=== PATIENT | female | born 1980 | race Caucasian/White ===

== ENCOUNTER 2020-10-03 17:11 | Inpatient (IN) | payer OTHER ==
[~2020-10-03] VITALS: Ht 167.6 cm; Wt 74.1 kg
[~2020-10-03 17:11] MED LIST: Pentoxifylline400 MG PO
[2020-10-03 18:01] LABS: Hematocrit 24.6 % (33.0-51.0); Hemoglobin 8.4 g/dL (11.5-16.0); Mean Corpuscular HGB 32.8 pg (26.0-34.0); Mean Corpuscular HGB Conc 34.1 g/dL (31.5-36.5); Mean Corpuscular Volume 96 fL (80-100); Mean Platelet Volume 9.4 fL (9.1-12.4); Platelet Count 270 K/mm3 (150-400); RDW Coefficient Variation 20.9 % (11.7-14.2); RDW Standard Deviation 69.8 fL (35.1-46.3); Red Blood Cell Count 2.56 M/mm3 (3.80-5.20); White Blood Cell Count 48.23 K/mm3 (4.00-11.30)
[2020-10-03 18:11] LABS: BASOPHILS ABSOLUTE MAN 0.48 K/mm3 (0.00-0.23); BASOPHILS PERCENT MAN 1 % (0-2); EOSINOPHILS ABSOLUTE MAN 3.37 K/mm3 (0.00-0.68); EOSINOPHILS PERCENT MAN 7 % (0-6); LYMPHOCYTES ABSOLUTE MAN 8.19 K/mm3 (0.84-5.20); LYMPHOCYTES PERCENT MAN 17 % (21-46); MONOCYTES ABSOLUTE MAN 2.89 K/mm3 (0.16-1.47); MONOCYTES PERCENT MAN 6 % (4-13); NEUTROPHILS ABSOLUTE MAN 33.27 K/mm3 (1.96-9.15); SEG NEUTROPHILS PERCENT MAN 69 % (41-73); TOTAL CELLS COUNTED 100
[2020-10-03] MEDS ORDERED: SPIRONOLACTONE25 MG PO (19:29)
[2020-10-03] MEDS ORDERED: PANTOPRAZOLE SO40 M2 PO (19:29)
[2020-10-03] MEDS ORDERED: CONSTULOSE10 GM/155 PO (19:30)
[2020-10-03] MEDS ORDERED: FERROUS GLUCON324 M3 PO (19:30)
[2020-10-03 21:40] LABS: Percent Saturation 93.8 % (15.0-50.0)
--- NOTE | 2020-10-03 22:02 | NUR ---
ASSUMPTION OF CARE RECEIVED REPORT FROM CELIO RICHARD AT 2100. PATIENT ARRIVED TO UNIT AT 2109 VIA GURNEY. TRANSFERRED SELF TO BED INDEPENDENTLY. A/O, JAUNDICE, STATED TENDERNESS TO ABDOMEN, SEVERE DISTENTION NOTED DUE TO ASCITES. PROTONIX DRIP AND LR INIATED CHARTED. VITALS STABLE, ON RA. ORIENTED PATIENT TO CALL SYSTEM AND FALL RISK. EDUCATED PATIENT ON PLAN FOR PARACENTESIS AND GI PHYSICIAN TO SEE IN THE MORNING. ALSO EXPLAINED WHEN HER NEXT BLOOD DRAW WILL BE. PATIENT VERBALIZED UNDERSTANDING. WILL REVIEW ORDERS AND TREAT PRESCRIBED.
--- NOTE | 2020-10-03 23:49 | NUR ---
REASSESSMENT DR. TENA TO BEDSIDE, REVIEWED PLANS WITH PATIENT. PATIENT AGREED TO PARACENTESIS TOMORROW AND DR. TENA WILL FOLLOW UP WITH A SCOPE THE DAY AFTER UNLESS THERE ARE ACUTE CHANGES. REVIEWED PATIENT'S BLOOD PRESSURES WITH DR. TENA WHO BELIEVES SHE IS AT HER BASELINE. NO ACUTE CHANGES TO ASSESSMENT, IV FLUIDS OF LR AT 100ML/HR AND PROTONIX AT 10ML/HR INFUSING. PATIENT DENIES DISCOMFORTS. APPROVED TO HAVE CLEAR LIQUIDS, ICE WATER PROVIDED.
[2020-10-04 00:27] LABS: Hematocrit 23.8 % (33.0-51.0)
[2020-10-04 00:39] LABS: Magnesium, Blood 2.4 mg/dL (1.6-2.4); Potassium, Blood 3.4 mmol/L (3.5-5.5)
--- NOTE | 2020-10-04 01:57 | NUR ---
TRANSFER PATIENT WAS MOVED FROM ROOM ICU5 TO ICU1 VIA BED AND 2RN ASSIST. PATIENT TOLERATED WELL WITH NO DIFFICULTIES DURING TRANSFER. POTASSIUM BEGAN TO REPLACE MOST RECENT RESULT.
--- NOTE | 2020-10-04 04:15 | NUR ---
REASSESSMENT NO ACUTE CHANGES FROM PREVIOUS ASSESSMENT. PATIENT IN BED WITH EYES CLOSED, NO S/S OF DISTRESS. VITALS STABLE. POTASSIUM CONTINUES TO INFUSE, PROTONIX DRIP AT 10ML/HR. CALL LIGHT IN REACH.
[2020-10-04 05:18] LABS: BASOPHILS ABSOLUTE AUTO 0.19 K/mm3 (0.00-0.23); BASOPHILS PERCENT AUTO 0 % (0-2); EOSINOPHILS ABSOLUTE AUTO 0.65 K/mm3 (0.00-0.68); EOSINOPHILS PERCENT AUTO 1 % (0-6); Hematocrit 21.7 % (33.0-51.0); Hemoglobin 7.6 g/dL (11.5-16.0); IMMATURE GRAN PERCENT AUTO 4 % (0-1); LYMPHOCYTES ABSOLUTE AUTO 3.27 K/mm3 (0.84-5.20); LYMPHOCYTES PERCENT AUTO 7 % (21-46); MONOCYTES PERCENT AUTO 5 % (4-13); Mean Corpuscular HGB 33.2 pg (26.0-34.0); Mean Corpuscular Volume 95 fL (80-100); Mean Platelet Volume 9.3 fL (9.1-12.4); NEUTROPHILS ABSOLUTE AUTO 38.52 K/mm3 (1.96-9.15); NEUTROPHILS PERCENT AUTO 82 % (41-73); Platelet Count 258 K/mm3 (150-400); RDW Coefficient Variation 21.7 % (11.7-14.2); RDW Standard Deviation 68.7 fL (35.1-46.3); Red Blood Cell Count 2.29 M/mm3 (3.80-5.20); White Blood Cell Count 46.73 K/mm3 (4.00-11.30)
[2020-10-04 05:30] LABS: International Normalized Ratio 1.69; Prothrombin Time Results 17.7 Sec (9.7-11.5)
[2020-10-04 05:36] LABS: Alanine Aminotransfer (ALT/SGP 22 U/L (12-78); Albumin, Blood 2.1 g/dL (3.4-5.0); Albumin/Globulin Ratio 0.8 (0.8-1.8); Alk Phos 154 U/L (50-136); Anion Gap 5 mmol/L (6-16); Aspartate Aminotrans (AST/SGOT 111 U/L (12-37); Bilirubin, Total 10.1 mg/dL (0.1-1.0); Blood Urea Nitrogen 7 mg/dL (8-24); Bun/Creatinine Ratio 12.1 (12.0-20.0); CO2, Blood 24 mmol/L (21-32); Calcium, Blood 8.1 mg/dL (8.5-10.1); Chloride, Blood 106 mmol/L (98-108); Creatinine, Blood 0.58 mg/dL (0.40-1.00); Globulin, Blood 2.7 g/dL (2.2-4.0); Glomerular Filtration Rate >60 (60-); Glucose, Blood 98 mg/dL (70-99); Lactate Dehydrogenase (Ld),Bld 147 U/L (100-240); Sodium, Blood 135 mmol/L (136-145); Total Protein, Blood 4.8 g/dL (6.4-8.2)
--- NOTE | 2020-10-04 05:58 | NUR ---
SHIFT SUMMARY AFTER PATIENT WAS ADMITTED, DR. TENA ROUNDED PREVIOUSLY CHARTED AND DISCUSSED PATIENT'S PLAN FOR THE NEXT 1-2 DAYS. PATIENT IS IN AGREEANCE WITH PLAN. PATIENT REMAINED ON RA WITH STABLE VITALS. STEADY GAIT TO TOILET TWICE HAVING RED, LIQUID STOOLS. POTASSIUM FINISHING LAST DOSE. PROTONIX DRIP CONTINUES TO INFUSE. PATIENT AWAITING PARACENTESIS TODAY. WILL CONTINUE TO MONITOR AND REPORT TO ONCOMING RN.
--- NOTE | 2020-10-04 07:19 | NUR ---
ASSUMED CARE: PT RESTING IN BED, AWAKE, TALKING TO STAFF. LOW BPS NOTED, NIGHT RN STATES THIS HAS BEEN TREND. AWAITING PARACENTESIS. ABDOMINAL DISTENSION AND JAUNDICE NOTED. SINUS TACH IN LOW 100S ON TELE. NO ACUTE NEEDS OR CONCERNS AT THIS TIME.
[2020-10-04 10:32] LABS: Automated BF WBC Count 0.061 K/mm3 (0-999); Body Fluid WBC Count 61 /mm3 (0-999)
--- NOTE | 2020-10-04 10:33 | NUR ---
PARACENTESIS ULTRASOUND AND PA AT BEDSIDE TO PERFORM PARACENTESIS. 2.8 LITERS PULLED OFF AND REPORTED TO DR. TENA BY PRIMARY RN.
--- NOTE | 2020-10-04 10:37 | NUR ---
ULTRASOUND GUIDED PARACENTESIS DONE AT BEDSIDE WITH 2.8L REMOVED. PHARMACY STATES ALBUMIN IS USUALLY NOT GIVEN UNLESS MORE THAN 4L REMOVED. CALL TO DR TENA WHO STATES TO HOLD ALBUMIN AT THIS TIME. DR ASKED PT IF SHE WAS OK WITH EGD TODAY AND COLONOSCOPY TOMORROW. PT WAS AGREEABLE TO THIS PLAN. PT AWARE THAT SHE IS ONLY TO DRINK WATER UNTIL NOON THEN NPO FOR PROCEDURE.
[2020-10-04 10:49] LABS: Albumin, Body Fluid 0.4 g/dL
[2020-10-04 11:08] LABS: RBC Count, Body Fluid 73 /mm3 (0-0)
[2020-10-04 11:31] LABS: Color, Body Fluid L Yellow (None-Yellow); Total Cell Count, Body Fluid 100
[2020-10-04 11:32] LABS: Appearance, Body Fluid Clear (Clear)
[2020-10-04 12:12] LABS: Hematocrit 22.8 % (33.0-51.0); Hemoglobin 7.7 g/dL (11.5-16.0)
--- NOTE | 2020-10-04 14:50 | NUR ---
PROCEDURE DONE IN ICU. History, Chart, Medications and Allergies reviewed before start of procedure.Patient confirms NPO status and agrees with scheduled surgery. Lungs clear T/O to Auscultation.
--- NOTE | 2020-10-04 14:57 | NUR ---
10/04/20 1457 Parisa Palmer History, Chart, Medications and Allergies reviewed before start of procedure.Patient confirms NPO status and agrees with scheduled surgery.3-LEAD EKG REVIEWED WITH PHYSICIAN PRIOR TO START OF PROCEDURE.MONITOR INTACT WITH CONTINUOUS PULSE OXIMETRY AND INTERMITTENT BP.O2 VIA N/C INTACT THROUGHOUT SEDATION/PROCEDURE. See Anesthesia record
--- NOTE | 2020-10-04 15:43 | NUR ---
PROCEDURE UPPER SCOPE COMPLETED BY DR. TENA. DR. TENA GAVE INSTRUCTIONS TO RESTART CLEAR LIQUIDS UNTIL 0100 IN PREP FOR POSSIBLE POCEDURE TOMORROW.
--- NOTE | 2020-10-04 17:35 | NUR ---
SHIFT SUMMARY PATIENT A/OX4 WITH STABLE VITAL SIGNS THROUGH SHIFT. JAUNDICED. PARACENTESIS PULLED 2.8 LITERS OFF ABDOMEN TODAY. ABDOMEN CONTINUES TO BE DISTENDED AND TENDER. CONTINUOUS PROTONIX GTT IN PLACE. PATIENT HAS HAD MULTIPLE LIQUID RED BOWEL MOVEMENTS WITH LITTLE IMPROVEMENT IN COLOR OR CONSISTENCY. DR. TENA COMPLETED UPPER ENDOSCOPY AT THE BEDSIDE TODAY, PICTURES IN THE CHART. COLONOSCOPY TO BE PERFORMED TOMORROW BY DR. TENA. PATIENT IS AWARE AND INFORMED OF THE PREP AND PROCEDURE THAT WILL TAKE PLACE.
--- NOTE | 2020-10-04 19:30 | NUR ---
ASSESSMENT/ASSUMED CARE PT SITTING UP IN BED WATCING TV. STATES,"A LITTLE CRAMPING AND BLOATING TO ABD MAYBE 3/10 ON PAIN. I'M DOING OKAY". PT MOVING AND TURNING SELF IN BED. UP TO BATHROOM AD LORNA. LUNGS CLEAR ON ROOMAIR. RESP EVEN AND NONLABORED. HEART RATE TACHY. BP STABLE. NO EDEMA. SKIN JAUNDICE, WARM AND DRY. ABD DISTENDED, TENDER TO PALPATION. DENIES N/V. IV LEFT AC WITH BANANA BAG INFUSING AT 200 ML/HR AND IV TO RIGHT FOREARM WITH PROTONIX AT 10 ML/HR. BANDAID TO RIGHT LOWER QUAD ABD CD&I. TALKED WITH PT ABOUT HAVING HER REST TONIGHT AND START BOWEL PREP IN AM AT 0600. PT EXPRESSED UNDER STANDING. PT ON CLEAR LIQUIDS UNTIL 0100 THAN NPO.
[2020-10-04 22:32] LABS: Glucose, Body Fluid 116 mg/dL; Lactate Dehydrogenase, Body Fl 32 U/L; Protein, Body Fluid 0.8 g/dL
[2020-10-05 03:39] LABS: Hematocrit 20.2 % (33.0-51.0); Hemoglobin 6.8 g/dL (11.5-16.0); Mean Corpuscular HGB 33.2 pg (26.0-34.0); Mean Corpuscular HGB Conc 33.7 g/dL (31.5-36.5); Mean Corpuscular Volume 99 fL (80-100); Mean Platelet Volume 9.5 fL (9.1-12.4); Platelet Count 252 K/mm3 (150-400); RDW Coefficient Variation 22.1 % (11.7-14.2); RDW Standard Deviation 74.2 fL (35.1-46.3); Red Blood Cell Count 2.05 M/mm3 (3.80-5.20); White Blood Cell Count 48.56 K/mm3 (4.00-11.30)
[2020-10-05 05:26] LABS: Alanine Aminotransfer (ALT/SGP 22 U/L (12-78); Albumin/Globulin Ratio 0.7 (0.8-1.8); Alk Phos 147 U/L (50-136); Anion Gap 6 mmol/L (6-16); Aspartate Aminotrans (AST/SGOT 114 U/L (12-37); Bilirubin, Total 8.8 mg/dL (0.1-1.0); Blood Urea Nitrogen 5 mg/dL (8-24); Bun/Creatinine Ratio 8.6 (12.0-20.0); CO2, Blood 21 mmol/L (21-32); Calcium, Blood 7.9 mg/dL (8.5-10.1); Chloride, Blood 107 mmol/L (98-108); Creatinine, Blood 0.58 mg/dL (0.40-1.00); Globulin, Blood 2.7 g/dL (2.2-4.0); Glomerular Filtration Rate >60 (60-); Glucose, Blood 108 mg/dL (70-99); Magnesium, Blood 2.3 mg/dL (1.6-2.4); Potassium, Blood 3.8 mmol/L (3.5-5.5); Sodium, Blood 134 mmol/L (136-145); Total Protein, Blood 4.7 g/dL (6.4-8.2)
[2020-10-05 05:32] LABS: BAND PERCENT MAN 5 % (0-8); BASOPHILS PERCENT MAN 0 % (0-2); EOSINOPHILS ABSOLUTE MAN 0.48 K/mm3 (0.00-0.68); EOSINOPHILS PERCENT MAN 1 % (0-6); LYMPHOCYTES ABSOLUTE MAN 3.88 K/mm3 (0.84-5.20); LYMPHOCYTES PERCENT MAN 8 % (21-46); MONOCYTES PERCENT MAN 0 % (4-13); NEUTROPHILS ABSOLUTE MAN 44.18 K/mm3 (1.96-9.15); SEG NEUTROPHILS PERCENT MAN 86 % (41-73); TOTAL CELLS COUNTED 100
--- NOTE | 2020-10-05 05:47 | NUR ---
TRANSFUSION HGB 6.8, ONE UNIT PRBC STARTED. LR PLACED ON HOLD. PT SITTING UP IN BED WATCHING TV. VSS. BOWEL PREP STARTED.
--- NOTE | 2020-10-05 06:14 | NUR ---
SHIFT SUMMARY PT SITTING UP IN BED WATCHING TV AND WORKING ON [employer] ([employer]). TRANSFUSION OF PRBC INFUSING AT THIS TIME FOR HGB 6.8. PT TO HAVE COLONSCOPY THIS AFTERNOON. VSS. PT MOVING AND TURNING SELF IN BED. UP TO THE BATHROOM AD LORNA. REPORT TO ON COMING NURSE.
--- NOTE | 2020-10-05 07:15 | NUR ---
ASSUMPTION OF CARE ASSUMED CARE OF PT AT THIS TIME. PT IS LAYING IN BED, APPEARS COMFORTABLE. PT ON RA WITH BIOX 97%. MONITOR SHOWS SINUS TACH IN 100-110S. NOC RN REPORTS THIS HAS BEEN PERSISTENT THROUGH THE NIGHT. PT RECEIVING 1 UNIT PRBC. PT AMBULATES TO TOILET INDEPENDENTLY, PHILIP BLOOD PRESENT DURING BOWEL MOVEMENTS. PT CONTINUING TO DRINK [place]. SEE SHIFT ASSESSMENT.
[2020-10-05 10:05] LABS: Hematocrit 25.7 % (33.0-51.0); Hemoglobin 8.9 g/dL (11.5-16.0)
--- NOTE | 2020-10-05 16:23 | NUR ---
10/05/20 1623 Zachariah Ramos See Anesthesia record. History, Chart, Medications and Allergies reviewed before start of procedure. MONITOR INTACT WITH CONTINUOUS PULSE OXIMETRY AND INTERMITTENT BP.
--- NOTE | 2020-10-05 18:40 | NUR ---
SUMMARY Assumed care of pt at 1430 from Ketan RICHARD and Louise DANG. Pt A&O x 4. Answers questions. Follows commands. Verbalizes needs. Pleasant and cooperative with care. Pt on room air. BP low-normal. SR per monitor. Pt independent in room to use toilet. BMs clear. Medical, no tele ordered, after colonoscopy per Dr Lord. Discussed leukocytosis. Provider added zosyn and stopped ceftriaxone. Stated pt may eat. Ordered for protonix drip to be discontinued. Bed in lowest position. Call light in reach. Pt denies need at this time.
--- NOTE | 2020-10-05 19:36 | NUR ---
TRANSFER NOTE HANDOFF REPORT RECEIVED FROM ICU NURSE SARA. PT TRANSFERED TO FLOOR VIA WHEELCHAIR. LR NFUSING ORDERED. IV ANTIBIOTICS INFUSING. PT ORIENTED TO UNIT. CALL BUTTON WITHIN REACH. PERSONAL POSSESSIONS WITH PT
--- NOTE | 2020-10-06 04:36 | NUR ---
SHIFT SUMMARY ADMITTED FOR GI BLEED. FULL CODE. PT HAS HAD AN UPPER AND LOWER ENDOSCOPY. PT HAS CIRRHOSIS AND STABLE ESOPHAGEAL VARICES. RE: ASCITES - SHE HAD A PARACENTESIS AT [facility] WHERE [address] TENA IS CONSULT. PT IS JAUNDICED. WBC COUNT WAS ELEVATED @ 48.6, AWAITING MORNING LABS. LR INFUSING @ 100 ML/HR. IV ANTIBIOTICS ARE SCHEDULED. 1 UNIT OF PRBC GIVEN ON PREVIOUS SHIFT. NO REPORTS OF MELENA THIS SHIFT
[2020-10-06 05:16] LABS: Hematocrit 21.7 % (33.0-51.0); Hemoglobin 7.4 g/dL (11.5-16.0); Mean Corpuscular HGB 32.5 pg (26.0-34.0); Mean Corpuscular HGB Conc 34.1 g/dL (31.5-36.5); Mean Corpuscular Volume 95 fL (80-100); Mean Platelet Volume 9.6 fL (9.1-12.4); NRBC ABSOLUTE 0.02 K/mm3 (0.00-0.02); Platelet Count 248 K/mm3 (150-400); RDW Coefficient Variation 22.5 % (11.7-14.2); RDW Standard Deviation 72.2 fL (35.1-46.3); Red Blood Cell Count 2.28 M/mm3 (3.80-5.20); White Blood Cell Count 46.13 K/mm3 (4.00-11.30)
[2020-10-06 05:30] LABS: International Normalized Ratio 1.68; Prothrombin Time Results 17.6 Sec (9.7-11.5)
[2020-10-06 05:44] LABS: Alanine Aminotransfer (ALT/SGP 24 U/L (12-78); Albumin, Blood 1.7 g/dL (3.4-5.0); Albumin/Globulin Ratio 0.7 (0.8-1.8); Alk Phos 143 U/L (50-136); Anion Gap 8 mmol/L (6-16); Aspartate Aminotrans (AST/SGOT 127 U/L (12-37); Bilirubin, Total 9.1 mg/dL (0.1-1.0); Blood Urea Nitrogen 5 mg/dL (8-24); CO2, Blood 21 mmol/L (21-32); Calcium, Blood 7.4 mg/dL (8.5-10.1); Chloride, Blood 102 mmol/L (98-108); Creatinine, Blood 0.83 mg/dL (0.40-1.00); Globulin, Blood 2.6 g/dL (2.2-4.0); Glomerular Filtration Rate >60 (60-); Glucose, Blood 108 mg/dL (70-99); Magnesium, Blood 2.4 mg/dL (1.6-2.4); Phosphorus, Blood 2.9 mg/dL (2.5-4.9); Potassium, Blood 3.5 mmol/L (3.5-5.5); Sodium, Blood 131 mmol/L (136-145); Total Protein, Blood 4.3 g/dL (6.4-8.2)
[2020-10-06 05:55] LABS: BAND PERCENT MAN 8 % (0-8); BASOPHILS PERCENT MAN 0 % (0-2); EOSINOPHILS ABSOLUTE MAN 0.46 K/mm3 (0.00-0.68); EOSINOPHILS PERCENT MAN 1 % (0-6); LYMPHOCYTES ABSOLUTE MAN 1.38 K/mm3 (0.84-5.20); LYMPHOCYTES PERCENT MAN 3 % (21-46); METAMYELOCYTE ABSOLUTE MAN 0.46 K/mm3 (0.00-0.00); METAMYELOCYTE PERCENT MAN 1 % (0-0); MONOCYTES ABSOLUTE MAN 2.76 K/mm3 (0.16-1.47); MONOCYTES PERCENT MAN 6 % (4-13); MYELOCYTE ABSOLUTE MAN 0.92 K/mm3 (0.00-0.00); MYELOCYTE PERCENT MAN 2 % (0-0); NEUTROPHILS ABSOLUTE MAN 40.13 K/mm3 (1.96-9.15); SEG NEUTROPHILS PERCENT MAN 79 % (41-73); TOTAL CELLS COUNTED 100
[2020-10-06 11:12] LABS: Hematocrit 20.3 % (33.0-51.0); Hemoglobin 6.9 g/dL (11.5-16.0)
[2020-10-06 18:52] LABS: Hematocrit 22.4 % (33.0-51.0); Hemoglobin 7.9 g/dL (11.5-16.0)
--- NOTE | 2020-10-06 19:40 | NUR ---
SHIFT SUMMARY: PT A&O; CALM AND COOPERATIVE WITH CARE. PHILIP BLEEDING PER RECTUM CONTINUING; GI (DR TENA) FOLLOWING; 1U PRBCS INFUSED THIS SHIFT. NO C/O PAIN THIS SHIFT; MEDICATED FOR NAUSEA PER EMAR. CIRRHOSIS c ASCITES; ABD DISTENDED. IV ABX, LR, & BANANA BAG CONTINUING. REPORT GIVEN TO ONCOMING RN.
--- NOTE | 2020-10-06 22:46 | NUR ---
PT GAVE THIS STUDENT PERMISSION TO PROVIDE CARE ON 10/06/20.
[2020-10-07 03:13] LABS: Hematocrit 18.2 % (33.0-51.0); Hemoglobin 6.3 g/dL (11.5-16.0); Mean Corpuscular HGB 32.6 pg (26.0-34.0); Mean Corpuscular HGB Conc 34.6 g/dL (31.5-36.5); Mean Corpuscular Volume 94 fL (80-100); Mean Platelet Volume 9.5 fL (9.1-12.4); Platelet Count 229 K/mm3 (150-400); RDW Coefficient Variation 21.9 % (11.7-14.2); RDW Standard Deviation 65.7 fL (35.1-46.3); Red Blood Cell Count 1.93 M/mm3 (3.80-5.20)
[2020-10-07 03:30] LABS: Alanine Aminotransfer (ALT/SGP 24 U/L (12-78); Albumin, Blood 1.5 g/dL (3.4-5.0); Albumin/Globulin Ratio 0.7 (0.8-1.8); Alk Phos 130 U/L (50-136); Anion Gap 9 mmol/L (6-16); Aspartate Aminotrans (AST/SGOT 117 U/L (12-37); Bilirubin, Total 10.3 mg/dL (0.1-1.0); Blood Urea Nitrogen 6 mg/dL (8-24); Bun/Creatinine Ratio 6.2 (12.0-20.0); CO2, Blood 21 mmol/L (21-32); Calcium, Blood 7.3 mg/dL (8.5-10.1); Chloride, Blood 102 mmol/L (98-108); Creatinine, Blood 0.96 mg/dL (0.40-1.00); Globulin, Blood 2.3 g/dL (2.2-4.0); Glomerular Filtration Rate >60 (60-); Glucose, Blood 123 mg/dL (70-99); Potassium, Blood 3.5 mmol/L (3.5-5.5); Sodium, Blood 132 mmol/L (136-145); Total Protein, Blood 3.8 g/dL (6.4-8.2)
[2020-10-07 03:33] LABS: BAND PERCENT MAN 5 % (0-8); BASOPHILS ABSOLUTE MAN 0.56 K/mm3 (0.00-0.23); BASOPHILS PERCENT MAN 1 % (0-2); EOSINOPHILS ABSOLUTE MAN 0.56 K/mm3 (0.00-0.68); EOSINOPHILS PERCENT MAN 1 % (0-6); LYMPHOCYTES ABSOLUTE MAN 2.25 K/mm3 (0.84-5.20); LYMPHOCYTES PERCENT MAN 4 % (21-46); METAMYELOCYTE ABSOLUTE MAN 0.56 K/mm3 (0.00-0.00); METAMYELOCYTE PERCENT MAN 1 % (0-0); MONOCYTES ABSOLUTE MAN 0.56 K/mm3 (0.16-1.47); MONOCYTES PERCENT MAN 1 % (4-13); MYELOCYTE ABSOLUTE MAN 0.56 K/mm3 (0.00-0.00); MYELOCYTE PERCENT MAN 1 % (0-0); NEUTROPHILS ABSOLUTE MAN 51.23 K/mm3 (1.96-9.15); SEG NEUTROPHILS PERCENT MAN 86 % (41-73); TOTAL CELLS COUNTED 100
--- NOTE | 2020-10-07 05:23 | NUR ---
SHIFT SUMMARY PT EXPERIENCED ACUTE CHANGES THIS SHIFT. PHILIP BLEEDING PER RECTUM CONITNUING. PT REPORTED SOB, SPOTS IN VISION, & LIGHTHEADEDNESS. PT EXPERIENCED HYPOTENSION; D/T LOW HGB PT RECEIVED 1UNIT OF PRBC. MEDICATED FOR NAUSEA/EMESID X1 & PAIN X1 PER JUL. PT DID NOT REST COMFPRTABLY T/O THE NIGHT. CALL LIGHT WITHIN REACH & BED IN LOWEST POSITION. WILL CONTINUE TO MONITOR UNTIL DAY RN ASSUMES CARE.
[2020-10-07 08:17] LABS: Hematocrit 23.1 % (33.0-51.0)
[2020-10-07 11:02] LABS: Hematocrit 21.5 % (33.0-51.0); Hemoglobin 7.4 g/dL (11.5-16.0)
--- NOTE | 2020-10-07 11:12 | NUR ---
PRBC INFUSION STARTED @1103 LLL DIMINISHED
[2020-10-07 13:39] LABS: C DIFFICILE DNA NEGATIVE (Negative)
[2020-10-07 14:36] LABS: Hematocrit 24.2 % (33.0-51.0); Hemoglobin 8.5 g/dL (11.5-16.0)
[2020-10-07 17:35] LABS: Campylobacter Sp Not Detected (NOT DETECT); Enteroaggregative E. coli-EAEC Not Detected (NOT DETECT); Enteropathogenic E. coli-EPEC Not Detected (NOT DETECT); Enterotoxigenic E. coli-ETEC Not Detected (NOT DETECT); Plesiomonas Shigelloides Not Detected (NOT DETECT); Salmonella Sp Not Detected (NOT DETECT); Shiga Toxin-prod E. coli-STEC Not Detected (NOT DETECT); Vibrio Cholerae Not Detected (NOT DETECT); Vibrio Sp Not Detected (NOT DETECT); Yersinia Enterocolitica Not Detected (NOT DETECT)
[2020-10-07 17:36] LABS: Adenovirus F 40/41 Not Detected (NOT DETECT); Astrovirus Not Detected (NOT DETECT); Cryptosporidium Not Detected (NOT DETECT); Cyclospora Cayetanensis Not Detected (NOT DETECT); E. Coli O157 Not Detected (NOT DETECT); Entamoeba Histolytica Not Detected (NOT DETECT); Giardia Lamblia Not Detected (NOT DETECT); Norovirus GI/GII Not Detected (NOT DETECT); Rotavirus A Not Detected (NOT DETECT); Sapovirus Not Detected (NOT DETECT); Shigella/Enteroin E. coli-EIEC Not Detected (NOT DETECT)
[2020-10-07 18:26] LABS: Hematocrit 22.2 % (33.0-51.0)
--- NOTE | 2020-10-07 18:41 | NUR ---
PATIENT ARRIVED TO UNIT FROM MEDICAL FLOOR, ABLE TO TRANSFER WITH SBA TO BED. ALERT AND ORIENTED, VSS. PATIENT DENIES CHEST PAIN/PRESSURE. CALL LIGHT WITHIN REACH, WCTM.
--- NOTE | 2020-10-07 19:06 | NUR ---
PT INFUSING 1 UNIT PRBC AT SOC. 1 MORE UNIT INFUSED. PT CONTINUED WITH PHILIP STOOL THOUGHOUT CARE. C-DIFF NEGATIVE. HEMATOLOGY CONSULT CALLED. PT CONTINUED WITH LOW BP 80S/40S. ABDOMEN DISTENDED.DR. DURAN NOTIFIED OF PT STATUS. ORDER RECIEVED TO TRANSFER PT TO HIGHER LEVEL OF CARE. REPORT CALLED TO PCU
[2020-10-07 19:49] LABS: Hematocrit 22.2 % (33.0-51.0); Hemoglobin 7.8 g/dL (11.5-16.0)
[2020-10-07 21:13] LABS: Hemoglobin 7.4 g/dL (11.5-16.0)
[2020-10-08 00:39] LABS: Hematocrit 20.2 % (33.0-51.0); Hemoglobin 7.3 g/dL (11.5-16.0)
[2020-10-08 04:05] LABS: Hematocrit 19.2 % (33.0-51.0); Hemoglobin 6.6 g/dL (11.5-16.0); Mean Corpuscular HGB 31.7 pg (26.0-34.0); Mean Corpuscular HGB Conc 34.4 g/dL (31.5-36.5); Mean Corpuscular Volume 92 fL (80-100); Mean Platelet Volume 9.6 fL (9.1-12.4); NRBC ABSOLUTE 0.02 K/mm3 (0.00-0.02); Platelet Count 238 K/mm3 (150-400); RDW Coefficient Variation 19.8 % (11.7-14.2); RDW Standard Deviation 53.4 fL (35.1-46.3); Red Blood Cell Count 2.08 M/mm3 (3.80-5.20)
[2020-10-08 04:19] LABS: White Blood Cell Count 55.26 K/mm3 (4.00-11.30)
--- NOTE | 2020-10-08 04:45 | NUR ---
SHIFT SUMMARY NO ACUTE CHANHGES THIS SHIFT. PT AXO. IN SR/ST. SBP RANGING FROM 70-105. FLUIDSINFUSING AT 100ML/HR CONTINUOUSLY. REMAINS ON RA WITH CLEAR LS. SEVERE DISTENSION TO AB REMAINS. PT STATES TIGHT FEELING TO ABD. HGB HAS SO FAR REMAINED >7. HAS HAD MULTIPLE PHILIP RED BM'S TOTALING UP TO AROUND 250-300MLS. OTHERWISE, PT HAS BEEN RESTING OFF AND ON IN ROOM. WCTM.
[2020-10-08 04:48] LABS: Albumin, Blood 1.5 g/dL (3.4-5.0); Albumin/Globulin Ratio 0.7 (0.8-1.8); Bilirubin, Total 11.6 mg/dL (0.1-1.0); Calcium, Blood 7.2 mg/dL (8.5-10.1); Creatinine, Blood 1.29 mg/dL (0.40-1.00); Globulin, Blood 2.2 g/dL (2.2-4.0); Magnesium, Blood 2.3 mg/dL (1.6-2.4); Potassium, Blood 3.5 mmol/L (3.5-5.5); Total Protein, Blood 3.7 g/dL (6.4-8.2)
[2020-10-08 05:38] LABS: BAND PERCENT MAN 8 % (0-8); BASOPHILS PERCENT MAN 0 % (0-2); EOSINOPHILS ABSOLUTE MAN 0.55 K/mm3 (0.00-0.68); EOSINOPHILS PERCENT MAN 1 % (0-6); LYMPHOCYTES ABSOLUTE MAN 5.52 K/mm3 (0.84-5.20); LYMPHOCYTES PERCENT MAN 10 % (21-46); METAMYELOCYTE ABSOLUTE MAN 0.55 K/mm3 (0.00-0.00); METAMYELOCYTE PERCENT MAN 1 % (0-0); MONOCYTES ABSOLUTE MAN 0.55 K/mm3 (0.16-1.47); MONOCYTES PERCENT MAN 1 % (4-13); NEUTROPHILS ABSOLUTE MAN 48.07 K/mm3 (1.96-9.15); SEG NEUTROPHILS PERCENT MAN 79 % (41-73); TOTAL CELLS COUNTED 100
--- NOTE | 2020-10-08 08:10 | NUR ---
INITIAL ASSESSMENT PATIENT ALERT AND ORIENTED X 4, AFEBRILE. PATIENT APPEARS ANXIOUS AT TIMES. PATIENT COMPLAINS OF 7/10 ABDOMINAL PAIN. PATIENT INDEPENDENT IN ROOM. PATIENT SATTING 90% AND GREATER ON RA. EXP WHEEZE NOTED IN L UPPER LUNG LOBE. PATIENT IN ST, HR AT 105. BP 82/44. PATIENT DENIES FEELING WEAK, DIZZY OR LIGHT HEADED WHEN SHE STANDS UP. ABDOMEN SEVERELY DISTENDED, FIRM, TENDER. HYPERACTIVE BS NOTED. PATIENT HAVING OUT PHILIP RED BLOOD. 150 MLS OUT THIS MORNING THUS FAR. WNL. SKIN JAUNDICED. NO OTHER SKIN PROBLEMS NOTED. 1 UNITS PRBCS INFUSING AT THIS TIME. BED LOW, CALL LIGHT IN REACH. WILL CONTINUE TO MONITOR PATIENT FREQUENTLY THROUGHOUT SHIFT.
--- NOTE | 2020-10-08 08:37 | NUR ---
DR. DURAN UPDATED ON PATIENT STATUS. INFORMED OF HYPOTENSION. INFORMED THAT H AND H 6.6 AND PATIENT CURRENTLY RECEIVING 1 UNITS OF PRBCS. INFORMED THAT PATIENT MENTIONED SHE WOULD LIKE PARACENTESIS BECAUSE OF ABDOMINAL COMFORT. PATIENT REPORTS ABDOMINAL PAIN 7/ 10 THIS AM. INFORMED THAT PATIENT HAS HAD ROUGHLY 150 MLS OF PHILIP RED BLOOD OUT THUS FAR THIS AM. DOCTOR STATED SHE WOULD PLACE ORDERS.
--- NOTE | 2020-10-08 10:17 | NUR ---
DR. DURAN INFORMED THAT PATIENT HAS RASH TO BLES. INFORMED THAT PATIENT ON ZOSYN AND HAS ALLERGY TO PENICILLINS. INFORMED THAT PATIENT REPORTED SHE HAD THE RASH BEFORE SHE WAS ADMITTED TO THE HOSPITAL. NO ORDER TO DC ZOSYN AT THIS TIME.
--- NOTE | 2020-10-08 11:51 | NUR ---
PATIENT AFEBRILE. PATIENT STATES PAIN IS MANAGEABLE AT THIS TIME. HR 99. BP 93/52. SANDOSTATIN STARTED AT 25 MLS/ HOUR. PG INSERTED BY CHARGE NURSE. DR. TENA IN ROOM TO SEE PATIENT.
[2020-10-08 12:46] LABS: Hematocrit 27.5 % (33.0-51.0); Hemoglobin 9.7 g/dL (11.5-16.0)
--- NOTE | 2020-10-08 15:27 | NUR ---
CALLED PHARMACY AND VERIFIED THAT OKAY TO RUN LR AND OCTREOTIDE INTO Y SITE TOGETHER.
--- NOTE | 2020-10-08 15:59 | NUR ---
PATIENT AFEBRILE. HR IN THE 90S. BP 99/57. NO OTHER ACUTE CHANGES TO NOTE ON AT THIS TIME. WILL CONTINUE TO MONITOR.
--- NOTE | 2020-10-08 18:11 | NUR ---
SHIFT SUMMARY PATIENT REMAINED ALERT AND ORIENTED X 4, AFEBRILE. PATIENT GIVEN PRN PAIN MEDICATION OT FOR COMPLAINT OF ABDOMINAL PAIN. PATIENT REMIANED INDEPENDENT IN ROOM. PATIENT REMAINED SATTING 90% AND GREATER ON RA. PATIENT SR TO ST, HR 90S TO LOW 100S. SBP 80S TO 90S. ABDOMEN REMAINED SEVERELY DISTENDED, FIRM, TENDER. POOR APPETITE. PATIENT HAD OUT 450 MLS OF BRIGHT RED, LIQUID STOOL. PATIENT HAD 3 UNMEASURED VOIDS THIS SHIFT. PATIENT REPORTED 2 OF THE VOIDS WERE SMALL AND 1 WAS A "GOOD SIZED VOID". RASH TO LEGS REMAINED UNCHANGED. PATIENT REMAINED ON ZOSYN. LR REMAINS AT 100 MLS/ HOUR. SANDOSTATIN STARTED THIS SHIFT AND REMAINS AT 25 MLS/ HOUR. PATIENT HAD 2 UNITS OF PRBCS THIS SHIFT. PATIENT STARTED ON ALBUMIN. MIDODRINE STARTED THIS SHIFT. PATIENT HAD US ABDOMEN AND NM GI BLOOD LOSS EXAM PERFORMED THIS SHIFT. NO ACTIVE BLEEDING NOTED ON RED TAG STUDY PER REPORT. NO COMPLAINTS OF PAIN OR DISCOMFORT AT THIS TIME. BED LOW, CALL LIGHT IN REACH. REPORT WILL BE GIVEN TO ONCOMING INVESTMENT PROFESSIONAL NURSE SHORTLY.
[2020-10-08 19:01] LABS: Hematocrit 23.4 % (33.0-51.0); Hemoglobin 8.2 g/dL (11.5-16.0)
--- NOTE | 2020-10-08 21:30 | NUR ---
PAIN; PATIENT REPORTS SHE WOULD LIKE PAIN MEDICATION FOR SIDES OF ABDOMEN. PATIENT EDUCATED ON BLOOD PRESSURE AND EFFECTS OF PAIN MEDICATION. MAT MAKER LORI IN UNIT AND DISCUSSED SITUATION; ORDERS FOR FENTANYL 25MCG Q2.
--- NOTE | 2020-10-08 22:44 | NUR ---
ASSUMED CARE OF PATIENT AT APPROXIMATELY 1900 FROM MARIA DEL ROSARIO Vo RN. PATIENT ALERT AND ORIENTED X4; WEAK; INDEPENDENT TO BEDSIDE COMMODE AND BACK TO BED. PATIENT REPORTS PAIN IN ABDOMEN FROM PRESSURE OF SWELLING IN ABDOMEN PUSHING UP INTO HER RIB CAGES AND SIDES OF ABDOMEN WHEN PUTTING PRESSURE ON IT; SEE PREVIOUS NOTE ABOUT PAIN. PATIENT DENIES NUMBNESS, TINGLING, DIZZINESS AND NAUSEA. PATIENT REPORTS POOR APPETITE BECAUASE SMALL AMOUNTS OF FOOD/DRINK FILL HER UP. LR INFUSING PER ORDER; OCTREOTIDE INFUSING PER ORDER. PG VERNA. SR ON TELE; OXYGEN SATURATION ABOVE 90% ON ROOM AIR. ONE BM THIS SHIFT; BRIGHT RED WITH SMALL FORMED; PATIENT REPORTS SMALLER AMOUNT BLOOD IN BM. SMALL AMOUNTS OF URINE.
[2020-10-09 00:50] LABS: Hematocrit 20.7 % (33.0-51.0); Hemoglobin 7.4 g/dL (11.5-16.0)
[2020-10-09 07:01] LABS: Hematocrit 21.6 % (33.0-51.0); Hemoglobin 7.7 g/dL (11.5-16.0)
--- NOTE | 2020-10-09 07:15 | NUR ---
PATIENT SLEPT ABOUT SEVEN HOURS LAST NIGHT. NO OTHER ACUTE CHANGES. HEMOGLOBIN ABOVE 7. BP IN 80-90'S. REPORT GIVEN TO TRICE Gamez
[2020-10-09 09:51] LABS: Performing Lab SYMBIODX; Test Name FLOW
--- NOTE | 2020-10-09 11:04 | NUR ---
PT ALERT AND ORIENTED X4. ON ROOM AIR AT THIS TIME. SATING MID 90'S THIS AM. DENIES SOB. TELE SHOWING SINUS HR 88. DENIES CHEST PAIN/PRESSURE. ABDOMEN DISTENTION, PT COMPLAINS OF PRESSURE. DENIES NEED FOR PAIN MEDICATION AT THIS TIME. SKIN AND SCLERA JAUNDICED. RIGHT UPPER ARM POWER GLIDE INFUSING LR AND OCTREOTIDE. LEFT AC SALINE LOCKED AND FLUSHING WELL. MINIMAL EDEMA TO UPPER THIGHS. DECREASED APPETITE. UP TO BSC. BLOODY STOOLS, PER PATIENT BLOOD IS DECREASING. WILL CONTINUE TO MONITOR. LUNGS SOUNDING CLEAR WITH DIMINISHED BASES. CALL LIGHT IN REACH. WILL CONTINUE TO MONITOR.
[2020-10-09 11:08] LABS: Bilirubin, Direct 9.1 mg/dL (0.0-0.3); Bilirubin, Indirect 2.9 mg/dL (0.1-0.7)
--- NOTE | 2020-10-09 16:03 | NUR ---
TWO BOWEL MOVEMENTS TODAY WITH BLOOD. PT STATES BLOOD IS ABOUT THE SAME IF NOT DECREASING FROM YESTERDAY. MEDIUM SIZED STOOLS WITH SOME LIQUID BRIGHT RED BLOOD.
[2020-10-09 16:23] LABS: Bun/Creatinine Ratio 6.9 (12.0-20.0); Calcium, Blood 7.8 mg/dL (8.5-10.1); Creatinine, Blood 1.45 mg/dL (0.40-1.00); Potassium, Blood 3.5 mmol/L (3.5-5.5)
--- NOTE | 2020-10-09 18:02 | NUR ---
SHIFT SUMMARY: PT REMAINS ALERT AND ORIENTED X4. NO ACUTE CHANGES. SEE PREVIOUS NOTES FOR UPDATES. PT COMPLAINS OF ABDOMINAL PAIN, DESCRIBING IT PRESSURE FROM HER ABDOMEN. MEDICATED PER EMAR. BLOOD PRESSURE REMAINED STABLE AND PT ABLE TO SIT UP IN BED AND EAT MEALS WITH PAIN DECREASING. OCTREOTIDE, FLUIDS AND ANTIBIOTICS INFUSING. WILL CONTINUE TO MONITOR AND REPORT OFF.
[2020-10-09 21:31] LABS: Hematocrit 20.9 % (33.0-51.0); Hemoglobin 7.1 g/dL (11.5-16.0)
[2020-10-10 04:20] LABS: Hematocrit 18.6 % (33.0-51.0); Hemoglobin 6.4 g/dL (11.5-16.0); Mean Corpuscular HGB 31.2 pg (26.0-34.0); Mean Corpuscular HGB Conc 34.4 g/dL (31.5-36.5); Mean Corpuscular Volume 91 fL (80-100); Mean Platelet Volume 8.8 fL (9.1-12.4); Platelet Count 171 K/mm3 (150-400); RDW Coefficient Variation 21.9 % (11.7-14.2); RDW Standard Deviation 57.5 fL (35.1-46.3); Red Blood Cell Count 2.05 M/mm3 (3.80-5.20); White Blood Cell Count 33.85 K/mm3 (4.00-11.30)
[2020-10-10 04:42] LABS: Albumin, Blood 2.5 g/dL (3.4-5.0); Albumin/Globulin Ratio 1.6 (0.8-1.8); Bilirubin, Total 10.3 mg/dL (0.1-1.0); Bun/Creatinine Ratio 6.7 (12.0-20.0); Calcium, Blood 7.7 mg/dL (8.5-10.1); Creatinine, Blood 1.34 mg/dL (0.40-1.00); Globulin, Blood 1.6 g/dL (2.2-4.0); Potassium, Blood 3.2 mmol/L (3.5-5.5); Total Protein, Blood 4.1 g/dL (6.4-8.2)
--- NOTE | 2020-10-10 05:54 | NUR ---
SHIFT SUMMARY PATIENT IS ALERT AND ORIENTED X4. REPOSITIONS SELF IN BED. SBA TO BEDSIDE COMMODE DUE TO LOW BP. 02 SATS >95% ON 2L VIA NC. MEDICATED FOR PAIN, SEE EMAR. PATIENTS EDEMA IN BLE INCREASING, BILATERAL SEQ. COMPRESSION DEVICES IN PLACE MOST THE NIGHT. PATIENT TEACHING ABOUT MOBILITY AND STAYING ACTIVE. CALLED HOSPITALIST FOR PATIENT Hgb 0F 6.4 AND POTASSIUM OF 3.2. 1 UNIT PRBCs TRANSFUSING NOW AND PO POTASSIUM GIVEN. VSS, NO ACUTE CHANGES. CALL LIGHT IN REACH.
--- NOTE | 2020-10-10 07:55 | NUR ---
BLOOD IN STOOL PT HAD 100 ML OF BRIGHT RED BLOOD IN STOOL. WILL INFORM PHYSICIAN.
--- NOTE | 2020-10-10 08:16 | NUR ---
UPDATE PT HAD 275 ML OF BLOOD IN STOOL. PHYSICIAN NOTIFIED BY PUBLIC ADMINISTRATION TEACHER.
--- NOTE | 2020-10-10 08:48 | NUR ---
UPDATE BY CRISTY BUCKLEY SN THS PATIET HAD ANOTHER BOWEL MOVEMENT OF 100 MLS OF BLOODY STOOL WITH COAGULATED BLOOD AT 0840 ON 10/10/20.
[2020-10-10 11:50] LABS: Hematocrit 22.3 % (33.0-51.0); Hemoglobin 7.7 g/dL (11.5-16.0)
--- NOTE | 2020-10-10 12:34 | NUR ---
UPDATE PT HAD PICC LINE PLACED PER ORDER FROM PHYSICIAN. PLACED BY HILARY HAMMONDS. PT TO NUCLEAR MED SCAN, ORDERED PER GI PHYSICIAN D/T PT'S INCREASE IN BLOODY STOOLS. WILL CONTINUE TO MONITOR.
--- NOTE | 2020-10-10 16:22 | NUR ---
PT TRANSFERED TO [facility] VIA GURNY FROM FLOOR. History, Chart, Medications and Allergies reviewed before start of procedure. Lungs clear T/O to Auscultation. Patient confirms NPO status and agrees with scheduled surgery.
--- NOTE | 2020-10-10 17:03 | NUR ---
10/10/20 1703 IDA FERRARI History, Chart, Medications and Allergies reviewed before start of procedure. 3-LEAD EKG REVIEWED WITH PHYSICIAN PRIOR TO START OF PROCEDURE. MONITOR INTACT WITH CONTINUOUS PULSE OXIMETRY AND INTERMITTENT BP. 3-LEAD EKG REVIEWED WITH PHYSICIAN PRIOR TO START OF PROCEDURE. NO SEDATION PER DR. TENA.
[2020-10-10 17:48] LABS: Hemoglobin 7.7 g/dL (11.5-16.0)
--- NOTE | 2020-10-10 18:37 | NUR ---
SHIFT SUMMARY PT ALERT AND ORIENTED X 4. HR STABLE, PT HAD RUN OF VTACH, SEE CHART. PHYSICIAN NOTIFIED, EKG ORDERED AND DONE,SEE PAPER CHART. PT REPORTS CHEST PAIN, UNABLE TO RATE OUT OF 10. LAB ORDERS INPUT, SEE EHR. RHYTHM NOW IN NORMAL SINUS RHYTHM. BP STABLE. OXYGEN SATURATION MAINTAINED ABOVE 92% ON 2 L OF OXYGEN VIA NC. PICC INSERTED PER PHYSICIAN ORDER. HGB STABLE, SEE CHART. PHYSICIAN NOTIFIED OF PT'S INCREASE IN BLEEDING FROM RECTUM. BROUGHT TO DAY SURGERY FOR PROCEDURE THIS AFTERNOON. VS STABLE WHEN ARRIVAL BACK TO UNIT. WILL CONTINUE TO MONITOR UNTIL REPORT GIVEN TO NIGHTSHIFT RN.
--- NOTE | 2020-10-10 19:45 | NUR ---
PT FALL PT FELL DURING SHIFT CHANGE AT 1930. PT WAS USING WALKER TO USE BED SIDE COMMODE. PT ASSESSED POST FALL WITH THIS RN AND HILARY MILLER. PT STATES SHE DID NOT HIT HER HEAD AND HIT KNEES ONLY. RANGE OF MOTION ASSESSED. NO WOUNDS VISIBLE. NO REDNESS. PT WAS IND IN ROOM AT BEGINNING OF SHIFT, PT ABLE TO AMBULATE ON OWN WITH WALKER AT END OF SHIFT. PT NOW HAS BED ALARM IN PLACE. PT EDUCATED ON FALL RISK AND REASON FOR FOR ASSISTANCE NEEDED WITH AMBULATION. PT ALERT AND ORIENTED X 4. FALL HUDDLE TO BE DONE WITH NUTRITION SERVICES ASSISTANTNICOLAS RICHARD.
--- NOTE | 2020-10-10 20:11 | NUR ---
FALL UPDATE RE-ASSESSED PT. PT REPORTS NO PAIN FROM FALL. RANGE OF MOTION INTACT. NO REDNESS OR BRUISING SEEN ON KNEES WHERE PT STATED THEY LANDED D/T FALL.
--- NOTE | 2020-10-10 20:25 | NUR ---
PHYSICIAN NOTIFIED PHYSICIAN NOTIFIED OF PT'S UNWITNESSED FALL. PHYSICIAN AWARE PT STATES SHE FELL AND HIT HER KNEES, REPORTS PAIN 0/10. NO REDNESS, TENDERNESS OR VISIBLE INJURY D/T FALL. NO ORDERS AT THIS TIME.
--- NOTE | 2020-10-11 06:46 | NUR ---
SHIFT SUMMARY PT A&O X 4; PLEASANT & COMPLIANT W/ CARE, BUT WITHDRAWN; VSS; DENIES CHEST PAIN; NSR NOTED ON TELE; NOTIFIED BY TELE OF SIGNIFICANT RUN OF VTACH @ 0430; PT AWOKE AND QUESTIONED, STATED SHE WAS ASSYMPTOMATIC; O2 SATS >93 ON 2L NC; PT DOES NOT USE O2 AT BASELINE; SLEPT A FEW HOURS IN BETWEEN INTERVENTIONS; APPEARS UNCOMFORTABLE AND WHEN QUESTIONED, PT STATES ABDOMEN "HURTS"; CALL LIGHT IN REACH; SANDOSTATIN GTT CONTINUES, LR GTT, ALBUMIN AND ABX THERAPY THIS SHIFT; BED IN LOWEST POSITION; WILL CONTINUE TO MONITOR CLOSELY UNTIL HAND OFF TO DAY SHIFT RN.
[2020-10-11 07:05] LABS: BASOPHILS ABSOLUTE AUTO 0.17 K/mm3 (0.00-0.23); BASOPHILS PERCENT AUTO 1 % (0-2); EOSINOPHILS ABSOLUTE AUTO 0.33 K/mm3 (0.00-0.68); EOSINOPHILS PERCENT AUTO 1 % (0-6); Hemoglobin 6.8 g/dL (11.5-16.0); IMMATURE GRAN PERCENT AUTO 2 % (0-1); LYMPHOCYTES ABSOLUTE AUTO 1.93 K/mm3 (0.84-5.20); LYMPHOCYTES PERCENT AUTO 6 % (21-46); MONOCYTES ABSOLUTE AUTO 1.75 K/mm3 (0.16-1.47); MONOCYTES PERCENT AUTO 5 % (4-13); Mean Corpuscular HGB 31.5 pg (26.0-34.0); Mean Corpuscular Volume 93 fL (80-100); Mean Platelet Volume 9.4 fL (9.1-12.4); NEUTROPHILS ABSOLUTE AUTO 29.56 K/mm3 (1.96-9.15); NEUTROPHILS PERCENT AUTO 86 % (41-73); Platelet Count 166 K/mm3 (150-400); RDW Coefficient Variation 21.2 % (11.7-14.2); RDW Standard Deviation 59.2 fL (35.1-46.3); Red Blood Cell Count 2.16 M/mm3 (3.80-5.20); White Blood Cell Count 34.24 K/mm3 (4.00-11.30)
[2020-10-11 07:11] LABS: Bun/Creatinine Ratio 7.3 (12.0-20.0); Calcium, Blood 7.6 mg/dL (8.5-10.1); Creatinine, Blood 1.24 mg/dL (0.40-1.00); Potassium, Blood 3.6 mmol/L (3.5-5.5)
[2020-10-11 17:35] LABS: Hemoglobin 7.8 g/dL (11.5-16.0)
--- NOTE | 2020-10-11 17:48 | NUR ---
SHIFT SUMMARY PT ALERT AND ORIENTED. PT ANXIOUS THROUGHOUT SHIFT AND NEW ORDERS FOR ATIVAN PO PROVIDED AND PT MEDICATED NEEDED. O2 SATS HAVE REMAINED ABOVE 90% ON 2L NC. THIS EVENING PT REPORTS FEELING LIKE SHE CAN'T CATCH HER BREATH. LS WHEEZES AND RR INCREASED. PT STATES SHE FEELS LIKE HER ABD IS CAUSING TOO MUCH PRESSURE SO SHE CAN'T BREATHE. DR. TENA NOTIFIED AND STATES HE WILL COME BY TO SEE PT. BP STABLE THIS SHIFT. HR REMAINS SINUS TACH. ABD FIRM AND DISTENDED. PT HAVING MULTIPLE BRIGHT RED BLOODY STOOL THAT IS LIQUID. PT STATES SHE IS PASSING MORE GAS TODAY THAN SHE HAS THE PREVIOUS COUPLE OF DAYS. PT COMPLAINS OF PAIN IN HER ABD AT TIMES THAT GOES DOWN INTO HER LEGS. PT MEDICATED NEEDED. PT RECEIVED 1 UNIT OF PRBC THIS SHIFT. LR INFUSING PER ORDERS. OCTREOTIDE INFUSING PER ORDERS. WILL CONTINUE TO MONITOR CLOSELY AND REPORT TO ONCOMING RN. CALL LIGHT IN REACH.
[2020-10-12 05:04] LABS: Hematocrit 19.8 % (33.0-51.0); Hemoglobin 6.9 g/dL (11.5-16.0); Mean Corpuscular HGB 31.2 pg (26.0-34.0); Mean Corpuscular HGB Conc 34.8 g/dL (31.5-36.5); Mean Corpuscular Volume 90 fL (80-100); Mean Platelet Volume 9.1 fL (9.1-12.4); Platelet Count 143 K/mm3 (150-400); RDW Standard Deviation 58.1 fL (35.1-46.3); Red Blood Cell Count 2.21 M/mm3 (3.80-5.20); White Blood Cell Count 37.22 K/mm3 (4.00-11.30)
[2020-10-12 05:21] LABS: International Normalized Ratio 2.33
[2020-10-12 05:26] LABS: Albumin, Blood 2.9 g/dL (3.4-5.0); Albumin/Globulin Ratio 1.8 (0.8-1.8); Bilirubin, Total 12.2 mg/dL (0.1-1.0); Bun/Creatinine Ratio 6.4 (12.0-20.0); Calcium, Blood 7.7 mg/dL (8.5-10.1); Creatinine, Blood 1.1 mg/dL (0.40-1.00); Globulin, Blood 1.6 g/dL (2.2-4.0); Magnesium, Blood 1.6 mg/dL (1.6-2.4); Potassium, Blood 3.3 mmol/L (3.5-5.5); Total Protein, Blood 4.5 g/dL (6.4-8.2)
--- NOTE | 2020-10-12 06:32 | NUR ---
SHIFT SUMMARY PT A&OX4. WITHDRAWN. SP02>90% ON 2L NC. PT C/O OF SOB. TELEMETRY READS SINUS TACH, HR 100'S. PT HAS 2+ EDEMA IN FEET, ELEVATED ON PILLOW. PT HAS SEVERE ABD DISTENTION, FIRM AND TENDER. PT UP TO BSC W/ 1 PERSON FULL ASSIST D/T WEAKNESS. PT EXCRETING BLOOD INTO BSC. PT APPEARS JAUNDICE. SANDOSTATIN, LR, ABX INFUSED PER EMAR. POWERGLIDE DRAWS. PT HGB LAB RESULTED 6.9 THIS AM. CALL PLACED TO MD ROY. MD ROY W/ ORDERS TO RECHECK HGB AT 10 AM. CALL LIGHT IN REACH. WILL GIVE REPORT TO ONCOMING NURSE.
--- NOTE | 2020-10-12 09:46 | NUR ---
C/O burning in epigastric area, after which she also vomited, clear red liquid, after drinking swartz ensure with breakfast and po medications. blood transfusion started after administration of phenergan. Pt thereafter had agitation and anxiety, which seemed to be related to c/o pain in her legs, discomfort from abdominal distention and the nausea/vomiting. Took ativan by mouth 30 min after phenergan given and vomiting resolved. Appears more calm and not agitated now. Assisted to BSC, active bleeding noted from rectum bright red. Dr. Kurtz here to see the pt.
--- NOTE | 2020-10-12 12:38 | NUR ---
Met with pt this am in PCU prior to her transfer to ICU. She was not open to conversation at that point; she was attempting to get comfortable in the bed. I assisted her with repositioning, and covering her with a warm blanket. She appeared to fall asleep after the position change. Received a call from ENGINEER/CONDUCTOR regarding pt's worsening condition. Pt began her stay at [facility] in ICU, then transferred to Medical floor, then to PCU and now back to ICU, as her overall condition is deteriorating. Pt was about to begin paracenteses at the bedside, and I asked her if I could call her mom. She asked why, and I was very honest, but gentle. I replied, "I'm concerned about how things are going for you". She asked what I meant by that, and I gently explained again that her health is not improving, and this is end stage. She cut the conversation off at that point, and states she "wants to get the paracentesis done; that she's been waiting for that. Will attempt to see her after her paracentesis.
--- NOTE | 2020-10-12 14:10 | NUR ---
Assumed care of pt upon arrival to ICU 3 from PCU 4 at 1100. Pt accompanied by primary RNSamira. Bedside report received. Pt transferred to [facility] [place] from PCU bed using 5 staff. Transfered to ICU for increased monitoring. Pt on room air. SpO2 90% or greater. ST per monitor. BP stable. Finishing 1 unit PRBC. Pt assisted up to commode to void urine. Large mass of coagulated blood noted in commode. Unclear if it is from bowel or bladder. Bed in lowest position. Call light in reach.
[2020-10-12 14:22] LABS: Hematocrit 20.7 % (33.0-51.0)
--- NOTE | 2020-10-12 15:49 | NUR ---
Placed call to pt's mom Angelica. She states she is aware that pt is currently inpatient at [facility]. However, she states the pt told her "her liver is ok" and "the doctors are working on figuring out where the bleeding is coming from". I identified myself, and gently explained to Pt's mom Angelica that the prognosis is poor, and it is unlikely at this point that pt will survive. She informed me that pt has 2 daughters, ages 12 and 14 and they are currently staying at the pt's home with pt's boyfriend, who is also unaware of how dire the situation is. Pt's mom is going to speak to her , pt's father and they will likely drive to [place] this evening. Given the circumstances, this seems appropriate. She is unsure if she will be bringing the pt's daughters. I gave her the number for Palliative Care, and explained we're here until 1830 [facility] and will return in the am at 0830. Will continue to offer support to both pt and family.
--- NOTE | 2020-10-12 17:01 | NUR ---
Dr Lord in to see patient. Discussed bleeding and transfusions. States plan to give pt vitamin K.
--- NOTE | 2020-10-12 18:23 | NUR ---
SUMMARY Pt much more alert after receiving paracentesis. Looks more comfortable and willing to interact. Pt on room air. ST per monitor since arrival to unit. BP stable. Received 2 units PRBCs. Plan to recheck H&H as well as potassium 2 hrs after last PRBC complete. Pt calls appropriately. OOB at least every two hours this shift to void on commode. Requires one person assist. Will continue to closely monitor until care handoff and bedside report with oncoming RN.
[2020-10-12 20:08] LABS: Hematocrit 25.1 % (33.0-51.0); Hemoglobin 8.7 g/dL (11.5-16.0)
[2020-10-13 05:12] LABS: BASOPHILS ABSOLUTE AUTO 0.16 K/mm3 (0.00-0.23); BASOPHILS PERCENT AUTO 0 % (0-2); EOSINOPHILS PERCENT AUTO 1 % (0-6); Hematocrit 23.4 % (33.0-51.0); Hemoglobin 8.3 g/dL (11.5-16.0); IMMATURE GRAN ABSOLUTE AUTO 0.31 K/mm3 (0.00-0.10); IMMATURE GRAN PERCENT AUTO 1 % (0-1); LYMPHOCYTES ABSOLUTE AUTO 2.83 K/mm3 (0.84-5.20); LYMPHOCYTES PERCENT AUTO 8 % (21-46); MONOCYTES ABSOLUTE AUTO 1.26 K/mm3 (0.16-1.47); MONOCYTES PERCENT AUTO 4 % (4-13); Mean Corpuscular HGB 30.5 pg (26.0-34.0); Mean Corpuscular HGB Conc 35.5 g/dL (31.5-36.5); Mean Corpuscular Volume 86 fL (80-100); Mean Platelet Volume 9.4 fL (9.1-12.4); NEUTROPHILS ABSOLUTE AUTO 31.75 K/mm3 (1.96-9.15); NEUTROPHILS PERCENT AUTO 87 % (41-73); Platelet Count 128 K/mm3 (150-400); RDW Coefficient Variation 19.7 % (11.7-14.2); RDW Standard Deviation 50.4 fL (35.1-46.3); Red Blood Cell Count 2.72 M/mm3 (3.80-5.20); White Blood Cell Count 36.51 K/mm3 (4.00-11.30)
[2020-10-13 05:26] LABS: International Normalized Ratio 2.18; Prothrombin Time Results 22.5 Sec (9.7-11.5)
[2020-10-13 05:32] LABS: Alanine Aminotransfer (ALT/SGP 14 U/L (12-78); Albumin, Blood 2.9 g/dL (3.4-5.0); Albumin/Globulin Ratio 1.8 (0.8-1.8); Alk Phos 93 U/L (50-136); Anion Gap 10 mmol/L (6-16); Aspartate Aminotrans (AST/SGOT 63 U/L (12-37); Bilirubin, Total 14.3 mg/dL (0.1-1.0); Blood Urea Nitrogen 6 mg/dL (8-24); Bun/Creatinine Ratio 6.5 (12.0-20.0); CO2, Blood 21 mmol/L (21-32); Calcium, Blood 7.5 mg/dL (8.5-10.1); Chloride, Blood 108 mmol/L (98-108); Creatinine, Blood 0.92 mg/dL (0.40-1.00); Globulin, Blood 1.6 g/dL (2.2-4.0); Glomerular Filtration Rate >60 (60-); Glucose, Blood 114 mg/dL (70-99); Potassium, Blood 3.3 mmol/L (3.5-5.5); Sodium, Blood 139 mmol/L (136-145); Total Protein, Blood 4.5 g/dL (6.4-8.2)
--- NOTE | 2020-10-13 05:44 | NUR ---
SHIFT SUMMARY NO ACUTE CHANGES THIS SHIFT. REMAINS TACHYCARDIC INTO 120'S HR WITH OCCASIOANAL SBPS IN 80'S -90'S. REMAINS ON RA. HAS HAD 3 BLOODY BM'S THIS SHIFT. H&H HAS BEEN STABLE THIS SHIFT AND HAS NOT REQUIRED A TRANSFUSION. PT HAS BEEN RESTING FOR MAJORITY OF SHIFT BUT HAS ENGAGED IN CONVERSATION WITH THIS RN APPROPRIATELY. PICC AND POWERGLIDE DRESSINGS CHANGED, BOTH DRAW BLOOD WELL. OTHERWISE, PT STATES BEING COMFORTABLE. STATES BREATHING IS "MUCH EASIER" POST PARACENTESIS. WCTM.
--- NOTE | 2020-10-13 08:03 | NUR ---
Assumed care of pt at 0700. Report received from Theodore RICHARD. Pt A&O x 4. Answers questions. Follows commands. Verbalizes needs. Pleasant and cooperative with care. OOB to use BSC with one person minimum assist. Bright red liquid output of bowel. Clear yellow urine output. Pt on room air. SpO2 90% or greater. ST per monitor. BP stable. Oral care supplies provided to pt. Bed in lowest position. Call light in reach. Bed alarm on.
[2020-10-13 11:18] LABS: Hematocrit 20.6 % (33.0-51.0); Hemoglobin 7.1 g/dL (11.5-16.0)
--- NOTE | 2020-10-13 18:28 | NUR ---
SUMMARY No acute changes t/o shift. Pt OOB numerous times to use BSC. Steady on feet but supervised with all OOB activity. Pt on room air. SR per monitor. BP stable. Discussed H&H with Dr Kurtz earlier today. Pt received another unit of PRBCs. Plan to recheck H&H at 2014. The last void of bowel that pt had, there was no blood. Bed in lowest position. Call light in reach. Pt denies need at this time.
--- NOTE | 2020-10-13 18:36 | NUR ---
Review of pt with nursing and intesivist. pt mother callled discussed strategies of helping her children understand her illness. Will get chaplian support tello as GI for MAST scoring and prognosis.
--- NOTE | 2020-10-13 19:40 | NUR ---
ASSUMPTION OF CARE PT RESTING COMFORTABLY IN BED, DENIES PAIN AT THIS TIME. ZOSYN AND OCTREOTIDE CURRENTLY INFUSING. PT ALERT AND ORIENTED, CALM AND COOPERATIVE. VSS, SINUS TACH ON MONITOR, SBP 100'S, SPO2 >90% ON RA. PT ABLE TO REPOSITION SELF IN BED, CALL LIGHT WITHIN REACH USES APPROPRIATELY. 3+ EDEMA TO BLE, SCATTERED BRUISING.
[2020-10-13 20:33] LABS: Hematocrit 25.1 % (33.0-51.0); Hemoglobin 8.9 g/dL (11.5-16.0)
[2020-10-14 03:25] LABS: BASOPHILS ABSOLUTE AUTO 0.14 K/mm3 (0.00-0.23); BASOPHILS PERCENT AUTO 0 % (0-2); EOSINOPHILS PERCENT AUTO 1 % (0-6); Hematocrit 22.4 % (33.0-51.0); Hemoglobin 7.8 g/dL (11.5-16.0); IMMATURE GRAN ABSOLUTE AUTO 0.28 K/mm3 (0.00-0.10); IMMATURE GRAN PERCENT AUTO 1 % (0-1); LYMPHOCYTES ABSOLUTE AUTO 3.09 K/mm3 (0.84-5.20); LYMPHOCYTES PERCENT AUTO 8 % (21-46); MONOCYTES PERCENT AUTO 4 % (4-13); Mean Corpuscular HGB Conc 34.8 g/dL (31.5-36.5); Mean Corpuscular Volume 89 fL (80-100); Mean Platelet Volume 9.8 fL (9.1-12.4); NEUTROPHILS ABSOLUTE AUTO 32.29 K/mm3 (1.96-9.15); NEUTROPHILS PERCENT AUTO 86 % (41-73); Platelet Count 120 K/mm3 (150-400); RDW Coefficient Variation 19.3 % (11.7-14.2); RDW Standard Deviation 54.1 fL (35.1-46.3); Red Blood Cell Count 2.52 M/mm3 (3.80-5.20)
[2020-10-14 03:43] LABS: Alanine Aminotransfer (ALT/SGP 10 U/L (12-78); Albumin, Blood 3.1 g/dL (3.4-5.0); Albumin/Globulin Ratio 2.2 (0.8-1.8); Alk Phos 85 U/L (50-136); Anion Gap 9 mmol/L (6-16); Aspartate Aminotrans (AST/SGOT 51 U/L (12-37); Bilirubin, Total 15.1 mg/dL (0.1-1.0); Blood Urea Nitrogen 5 mg/dL (8-24); Bun/Creatinine Ratio 5.1 (12.0-20.0); CO2, Blood 23 mmol/L (21-32); Calcium, Blood 7.2 mg/dL (8.5-10.1); Chloride, Blood 106 mmol/L (98-108); Creatinine, Blood 0.98 mg/dL (0.40-1.00); Globulin, Blood 1.4 g/dL (2.2-4.0); Glomerular Filtration Rate >60 (60-); Glucose, Blood 124 mg/dL (70-99); Potassium, Blood 3.2 mmol/L (3.5-5.5); Sodium, Blood 138 mmol/L (136-145); Total Protein, Blood 4.5 g/dL (6.4-8.2)
--- NOTE | 2020-10-14 06:33 | NUR ---
SHIFT SUMMARY PT RESTING COMFORTABLY, ANXIOUS AT TIMES AFTER USING BEDSIDE COMMODE. CALL LIGHT USED APPROPRIATELY WHEN NEEDING TO USE COMMODE, STEADY ON FEET WHEN OUT OF BED. SBP LOW 90'S THIS AM, PRN MIDODRINE GIVEN. URINE CLEAR YELLOW, BOWELS LIQUID RED T/O SHIFT. PT ALERT AND ORIENTED, GETS SHORT OF BREATH WITH ACTIVITY. 2L NC APPLIED WHILE SLEEPING TO KEEP SATS >90%. HR SINUS TACH ON MONITOR.
--- NOTE | 2020-10-14 07:15 | NUR ---
Assumed care of pt at 0700. Bedside report received from Karlee RICHARD. Pt A&O x 4. Answers questions. Follows commands. Verbalizes needs. Pleasant and cooperative with care. On room air. SpO2 90% or greater. ST per monitor, BP stable. Bed in lowest position. Call light in reach. Pt denies need at this time.
--- NOTE | 2020-10-14 15:45 | NUR ---
Met with Siria this afternoon in her room. She is quietly laying under the covers c/o being cold. She is under a blanket and declines having this ticket writer go and get another warm blanket for her. She is jaundiced, soft spoken. She reports that she feels informed and well cared for by her nurses. She visited with her mother earlier today and is looking forward to her boyfriend coming to visit. [place]. She reports her support system is her mom and boyfriend. Did not get into any discussions about her care going forward as nursing reports pt was upset by prior visits with PC. Established rapport and let her lead the conversation. PC will continue to follow for support and advanced care planning. Pt reports she continues to bleed from rectal area, bright red blood, describes her pain as "Stinging" with bowel movements.
[2020-10-14 16:33] LABS: Hematocrit 18.6 % (33.0-51.0); Hemoglobin 6.5 g/dL (11.5-16.0)
--- NOTE | 2020-10-14 18:45 | NUR ---
No acute changes to initial assessment. Pt remains A&O x 4. Answering questions, following commands and verbalizes needs. Pt remains on room air. Remains ST. BP low-normal. Pt not symptomatic of low BP. Pt continues to bleed per rectum. Pt's mother and boyfriend in to visit briefly. Pt's boyfriend stated concern that she is not getting better. Stated that this RN shares the same concern. Discusses treatment plan of giving albumin, vit K, blood. Discussed that pt is unfortunately not able to have surgery to resolve bleeding. Pt becomes tearful. Pt and boyfriend verbalize understanding of plan. Pt transferred to PCU 13 and unit of blood started by PCU nurses.
--- NOTE | 2020-10-14 19:13 | NUR ---
Pt arrived from ICU via wheelchair. ONe person assist to the bed to sit. Pt is nauseated, dry heaving. AFter 10 minutes this was resolved. She is lying in bed now, HOB elevated, and warm blankets provided for c/o feeling cold. Blood transfusion in progress, about 10 minutes since initiation. She is asking for hiram Mist, which was brought by the PCT.
--- NOTE | 2020-10-14 19:30 | NUR ---
RECEIVED REPORT VIA PHONE FROM HILARY RUIZ AT 1835. PT ARRIVED AT 1851 VIA WHEELCHAIR ACCOMPANIED BY RN WITH CARDIAC MONITORING AND NO OXYGEN OR INFUSIONS. PT TRANSFERRED TO ROOM BED AND 1 UNIT OF BLOOD VERIFIED WITH MIKA JOE RN, AND TRANSFUSION BEGAN BY HEATH. PT VOMITED RED AND OLIVA EMESIS. BEDSIDE REPORT GIVEN TO HILARY WAY. PT AOX4, GREENFIELD, TACHYCARDIC RATE IN HIGH 120'S, AND EXHIBITED YELLOWED SKIN COLOR. PT DENIED ADDITIONAL CONCERNS AT THIS TIME.
[2020-10-15 00:48] LABS: Hematocrit 21.1 % (33.0-51.0); Hemoglobin 7.3 g/dL (11.5-16.0)
[2020-10-15 04:15] LABS: Hematocrit 21.2 % (33.0-51.0); Hemoglobin 7.3 g/dL (11.5-16.0); Mean Corpuscular HGB 30.4 pg (26.0-34.0); Mean Corpuscular HGB Conc 34.4 g/dL (31.5-36.5); Mean Corpuscular Volume 88 fL (80-100); Mean Platelet Volume 9.7 fL (9.1-12.4); Platelet Count 131 K/mm3 (150-400); RDW Coefficient Variation 18.7 % (11.7-14.2); RDW Standard Deviation 52.8 fL (35.1-46.3); White Blood Cell Count 36.07 K/mm3 (4.00-11.30)
[2020-10-15 04:32] LABS: Bun/Creatinine Ratio 4.6 (12.0-20.0); Creatinine, Blood 1.09 mg/dL (0.40-1.00); Potassium, Blood 3.3 mmol/L (3.5-5.5)
--- NOTE | 2020-10-15 06:10 | NUR ---
SHIFT SUMMARY PT WAS ALERT, ORIENTED, AND COOPERATIVE WITH CARE. PT RECEIVED ONE UNIT PRBC AT START OF SHIFT, HGB UP TO 7.3 FOR THE REMAINDER OF SHIFT LAB DRAWS. PT HAD MULTIPLE LARGE (>200ML) BM'S THAT WERE BRIGHT RED CLOTTED BLOOD IN APPEARANCE. PT STATED MILD DISCOMFORT WITH SWALLOWING. VITALS WERE STABLE WITH BP LOW 100'S SYSTOLIC. HR TACHY 110-120'S. PT ABLE TO STAND TO BSC. PT WAS UNABLE TO SLEEP DURING THIS SHIFT.
--- NOTE | 2020-10-15 13:52 | NUR ---
Palliative care supportive visit this afternoon. Siria is awake in her room. She is pleasant and talkative today. She reports she is feeling much better today after having a difficult night last night. She reports that the N/V has subsided and the pain and swelling in her feet are better. Her abd is distended but she states "It's manageable right now." She is unsure if family will be visiting today or not. She voices no concerns or needs at this time.
[2020-10-15 14:36] LABS: Hematocrit 20.1 % (33.0-51.0); Hemoglobin 6.9 g/dL (11.5-16.0)
--- NOTE | 2020-10-15 18:52 | NUR ---
PT HAD SEVERAL PHILIP BLOOD EMISSIONS FROM ANUS INTO BSC WITH MODERATE AM'T OF CLOTTING; PT RECEIVED ANALGESIC 2X PER MAR FOR REPORTS OF ABDOMINAL AND FOOT/LOWER LEG PAIN; PT RECEIVING 1 UNIT PRBC FOR HGB 6.9; PT'S COLOR SEVERELY JAUNDICED AND ABDOMEN DISTENDED; OCTREOTIDE DRIP INFUSING AND ABX ADMINISTERED PER MAR; PT REPORTS DIMINISHED APPETITE BUT NO NAUSEA; PT DENIES ADDITIONAL COMPLAINTS AT THIS TIME.
[2020-10-16 03:40] LABS: Hematocrit 22.1 % (33.0-51.0); Hemoglobin 7.4 g/dL (11.5-16.0); Mean Corpuscular HGB 29.2 pg (26.0-34.0); Mean Corpuscular HGB Conc 33.5 g/dL (31.5-36.5); Mean Corpuscular Volume 87 fL (80-100); Mean Platelet Volume 10.3 fL (9.1-12.4); Platelet Count 147 K/mm3 (150-400); RDW Coefficient Variation 20.1 % (11.7-14.2); RDW Standard Deviation 57.8 fL (35.1-46.3); Red Blood Cell Count 2.53 M/mm3 (3.80-5.20); White Blood Cell Count 31.59 K/mm3 (4.00-11.30)
[2020-10-16 04:01] LABS: Albumin, Blood 3.2 g/dL (3.4-5.0); Albumin/Globulin Ratio 2.3 (0.8-1.8); Bilirubin, Total 15.4 mg/dL (0.1-1.0); Bun/Creatinine Ratio 3.7 (12.0-20.0); Calcium, Blood 6.4 mg/dL (8.5-10.1); Creatinine, Blood 1.09 mg/dL (0.40-1.00); Globulin, Blood 1.4 g/dL (2.2-4.0); Potassium, Blood 3.3 mmol/L (3.5-5.5); Total Protein, Blood 4.6 g/dL (6.4-8.2)
--- NOTE | 2020-10-16 04:45 | NUR ---
MANAGER TALENT SUMMARY PT RECEIVED ONE UNIT OF PRBC'S THIS SHIFT WHICH BROUGHT HER HGB UP TO 7.4. PT HAD TWO BM'S THIS SHIFT THAT WERE LOOSE AND MAJORITY OF IT BEING BRIGHT RED BLOOD. PT IS HAVING A LOT OF PRESSURE FROM THE ASCITES AND O2 GEREMIAS WERE IN MID 80'S SO PT PLACED ON 2L VIA NC AND CONTINUOUS BI-OX, O2 SATS >91% ON 2L. PT DENIED ANY NAUSEA THIS SHIFT BUT WAS GIVEN PAIN MEDICATION X2 FOR PAIN IN ABDOMEN AND FEET. PT'S FEET STILL VERY SWOLLEN AND TENDER PER PT. SANDOSTATIN RUNNING UNINTERUPTED ALL SHIFT. PT IS AXO X4 AND CALLS APPROPRIATLEY. VSS, WCTM.
[2020-10-16 15:42] LABS: Hematocrit 19.7 % (33.0-51.0); Hemoglobin 6.6 g/dL (11.5-16.0)
--- NOTE | 2020-10-16 17:24 | NUR ---
Spiritual care note: Siria was pleasant, friendly, and engaged well with me. She allowed me to pray for her and spoke about her family a great deal. She feel well-loved and supported and reports hope for physical improvement. We established a good rapport and I will attempt more in-depth conversation/financial health counselor in coming days.
--- NOTE | 2020-10-16 18:30 | NUR ---
SHIFT SUMMARY: PT CONTINUES A&OX4, USES CALL LIGHT APPROPRIATELY. PT CURRENTLY RECEIVING O2 VIA NC AT 3 L/MIN, MAINTAINIING O2 SATS <92%. TACHYCARDIA CONTINUES. PT INDEPENDENT TO BSC. REPEAT LABS COMPLETED, PT CURRENTLY RECEIVING 1 UNIT PRBC AND KCL INFUSION, TOLERATING WELL. JAUNDICE, ASCITES, AND EDEMA CONTINUE, PT STATES IMPROVEMENT TO EDEMA IN LEGS, MAIN C/O ABDOMINAL PAIN AND PAIN IN FEET. AT THIS TIME, PT IS RESTING QUIETLY IN ROOM. WILL CONTINUE TO MONITOR AND TREAT ACCORDINGLY UNTIL CHANGE OF SHIFT.
[2020-10-17 03:42] LABS: Hematocrit 19.5 % (33.0-51.0); Hemoglobin 6.6 g/dL (11.5-16.0); Mean Corpuscular HGB 29.7 pg (26.0-34.0); Mean Corpuscular HGB Conc 33.8 g/dL (31.5-36.5); Mean Corpuscular Volume 88 fL (80-100); Mean Platelet Volume 9.5 fL (9.1-12.4); Platelet Count 117 K/mm3 (150-400); RDW Coefficient Variation 19.9 % (11.7-14.2); RDW Standard Deviation 59.6 fL (35.1-46.3); Red Blood Cell Count 2.22 M/mm3 (3.80-5.20)
[2020-10-17 03:57] LABS: International Normalized Ratio 2.78; Prothrombin Time Results 28.3 Sec (9.7-11.5)
[2020-10-17 04:13] LABS: Albumin, Blood 3.1 g/dL (3.4-5.0); Albumin/Globulin Ratio 2.2 (0.8-1.8); Bilirubin, Total 16.5 mg/dL (0.1-1.0); Bun/Creatinine Ratio 4.5 (12.0-20.0); Calcium, Blood 5.8 mg/dL (8.5-10.1); Creatinine, Blood 1.12 mg/dL (0.40-1.00); Globulin, Blood 1.4 g/dL (2.2-4.0); Potassium, Blood 3.3 mmol/L (3.5-5.5); Total Protein, Blood 4.5 g/dL (6.4-8.2)
--- NOTE | 2020-10-17 06:08 | NUR ---
PT TRANSFER PT FARELY STABLE FOR MOST OF THIS SHIFT BUT HAD INCREASING C/O WEAKNESS, NAUSEA AND BOWEL MOVEMENTS. PT RECIEVIED 1 UNIT OF PRBC'S AT START OF THE SHIFT W NO IMPROVEMENT TO H&H. PT HAD TOTAL OF 4 BOWEL MOVEMENTS THAT CONSISTED OF 400ML-600ML PHILIP RED BLOOD. WHILE BP REMAINED STABLE PT BECAME MORE TACHYCARDIC AND WEAK REQUIRING INCREASE FROM 4L O2 TO 15L OXYMIZER TO MAINTAIN O2 SATS >90%. I BECAME VERY CONCERNED ABOUT PT'S STATUS AT THIS POINT AND W CL CALCIUM, LOW POTASSIUM AND BLOOD REQUIREMENTS I REQUESTED TRANSFER TO ICU FROM NURSE SUPERVISER. PT TRANSFERED TO ICU 8 AND REPORT GIVEN TO HEIDI RICHARD.
[2020-10-17 06:44] LABS: Hematocrit 19.7 % (33.0-51.0); Hemoglobin 6.6 g/dL (11.5-16.0)
--- NOTE | 2020-10-17 07:29 | NUR ---
TX NOTE PT ARRIVED TO ICU FROM PCU, MOVED TO ICU BED VIA TOTAL LIFT. 1-UNIT OF BLOOD INFUSING UPON ARRIVAL. DR CURRAN CONTACTED FOR ORDERS ON THE PT, ORDERS FOR 1-UNIT OF PRBC AND 2-UNITS OF FFP c STAT H&H PLACED. SHORTLY AFTER SETTLING, PT BECAME HYPOTENSIVE. DR CURRAN NOTIFIED, LEVOPHED ORDERED BUT NOT INITIATED DUE TO PT BECOMING NORMOTENSIVE. HILARY MULLIGAN CONTACTED DR TENA AND RECEIVED FURTHER ORDERS. REPORT GIVEN TO ONCOMING NURSE.
--- NOTE | 2020-10-17 08:00 | NUR ---
INITIAL ASSESSMENT PATIENT RESTING IN BED QUIETLY UPON ENTERING ROOM. PATIENT ANSWERS ALL ORIENTATION QUESTIONS CORRECTLY. PATIENT DOES SEEM TO HAVE BRAIN FOG AND ANSWERS "I DON'T KNOW" TO A LOT OF QUESTIONS. PATIENT ANXIOUS AT TIMES. PATIENT CALM, DEPRESSED, WITHDRAWN. SCLERA JAUNDICED. PATIENT COMPLAINS OF 8/10 STOMACH PAIN. PATIENT AFEBRILE. PATIENT STATES BILAT HANDS ARE NUMB. PATIENT WEAK BUT ABLE TO MOVE ALL EXTREMITIES. PATIENT DECREASED FROM 4 L NC TO 2 L NC AND REMAINS SATTING 90% AND GREATER. LUNGS CLEAR THROUGHOUT; DIM IN LOWER LOBES. PATIENT SLIGHTLY SOB WITH EXERTION. PATIENT IN ST, HR IN THE 120S. SBP 90S TO LOW 100S. PITTING EDEMA TO LOWER EXTREMITIES. ASCITES NOTED. PATIENT RECEIVING SCHEDULED ALBUMIN. ABDOMEN SEVERELY DISTENDED, FIRM, TENDER, WITH HYPOACTIVE BS NOTED. DRIED BLOOD NOTED AROUND MOUTH AND LIPS. PATIENT REPORTS NO PROBLEMS WITH . SKIN JAUNDICED. SCATTERED BRUISING NOTED. PETECHIAE NOTED TO CHEST. NS TKO, OCTREOTIDE INFUSING AT 25 MLS/ HOUR. PATIENT RECEIVING PRBCS AND PLATELETS THIS AM FOR HBG THIS AM OF 6.6. PATIENT RECEIVING 40 MEQ KCL FOR AM POTASSIUM OF 3.3. PATIENT RECEIVED 1G CALCIUM GLUCONATE FOR AM CALCIUM OF 5.8. PATIENT RECEIVED 4 MG BUMEX BY BUTADIENE CONVERTER HELPER AROUND 0700. BED LOW, CALL LIGHT IN REACH. PATIENT ORIENTED TO ROOM AND CALL SYSTEM. WILL CONTINUE TO MONITOR PATIENT FREQUENTLY THROUGHOUT SHIFT.
--- NOTE | 2020-10-17 09:40 | NUR ---
PALLIATIVE CARE CONTACTED AT [address] TENA WOULD LIKE FOR THEM TO CALL HIM TO GET UPDATE AND THEN SPEAK WITH FAMILY AND PATIENT ABOUT MAKING DECISIONS REGARDING PATIENT'S POOR PROGNOSIS. PALLIATIVE CARE HAS BEEN UPDATED AND HAS SPOKE WITH PATIENT. FAMILY WILL BE IN SHORTLY.
--- NOTE | 2020-10-17 09:41 | NUR ---
Spoke with Dr Cabrera regarding pt prognosis her pps score is 30%. plan is to have family come in for a meeting. pt responds to questioning but struggles with tracking. She complains of abdominal pain and is labored in her breathing. she is more jaundiced. Needs diuris but dr cabrera is concered for worsening renal function. Goal is comfort due to worsening prognosis and pt starting to suffer.
[2020-10-17 11:35] LABS: Hematocrit 23.3 % (33.0-51.0); Hemoglobin 8.1 g/dL (11.5-16.0)
[2020-10-17 11:38] LABS: Bicarbonate Venous 22.3 mmol/L (24.0-30.0); PCO2 Venous 30.3 mmHg (38-42); pH Blood Venous 7.45 (7.34-7.37)
--- NOTE | 2020-10-17 12:07 | NUR ---
Pt family in we had blunt discussion of prognosis and trajectory of her disease. Pt struggling more short of breath and coughing up some blood clots. We reviewed CPR and recusitation and comfort carea nd hospice. Pt mother expressing not wanting her to suffer. We reviewed if treatments are not working then the goal is try to prevent extrodianry suffering. Will have phsycian speak with family.
--- NOTE | 2020-10-17 12:50 | NUR ---
PATIENT HAS TEMP OF 99.5 DEGREES FAHRENHEIT. HR 1-TEENS TO 120S. SBP LOW 100S TO 1-TEENS. PATIENT TACHYPNEIC AT TIMES. PATIENT SATTING 90% AND GREATER ON 2 TO 4 L NC. PATIENT OFFERED CLEAR ENSURE AFTER REFUSING LUNCH. PATIENT STATES SHE DOES NOT WANT ANYTHING AT THIS TIME. PATIENT GIVEN PRN PAIN MEDICATION FOR COMPLAINTS OF ABDOMINAL PAIN. NO OTHER ACUTE CHANGES TO NOTE ON AT THIS TIME. WILL CONTINUE TO MONITOR.
--- NOTE | 2020-10-17 13:00 | NUR ---
DR. BURNHAM INFORMED OF POTASSIUM OF 3.5, HGB 8.1, LACTIC OF 2.5, INCREASING WBCS, AND TEMP OF 99.5 DEGREES FAHRENHEIT. NO ORDERS RECEIVED AT THIS TIME.
--- NOTE | 2020-10-17 13:21 | NUR ---
Spiritual care note: Provided emotional support and gentle student counselor to "sister" Liliya. Liliya appears to grasp Siria's dire prognosis. I attempted to meet with Siria alone and she was dismissive. She apeared frightened and quite ill. Family is clearly loving and doing their best to honor Siria's wishes. I will remain available.
--- NOTE | 2020-10-17 16:30 | NUR ---
PATIENT AFEBRILE. PATIENT SATTING 90% AND GREATER ON 2 TO 5 L NC. HUMIDITY APPLIED TO O2 PATIENT GOT BLOODY NOSE. PATIENT HAS OCCASIONAL COUGH. HR IN THE 1-TEENS. SBP 90S TO LOW 100S. PATIENT REFUSED BED BATH. PATIENT'S DAUGHTERS HERE WITH COUSIN TO VISIT.
--- NOTE | 2020-10-17 19:19 | NUR ---
SHIFT SUMMARY PATIENT REMAINED ALERT AND ORIENTED THIS SHIFT. PATIENT DID HAVE PERIODS WHERE SHE SEEMED MORE FORGETFUL OR "FOGGY". PATIENT GIVEN PRN FENTANYL AND MORPHINE FOR COMPLAINTS OF STOMACH PAIN. PATIENT REPORTED SHE DID NOT LIKE THE MORPHINE BECAUSE IT MADE HER FEEL "GOOFY". PATIENT HAD TMAX OF 99.5 DEGREES FAHRENHEIT. PATIENT REMAINED SATTING 90% AND GREATER ON 2 TO 5 L NC. PATIENT SOB WITH EXERTION. PARACENTESIS JUST PERFORMED BY DR. TENA AND PATIENT STATES SHE FEELS MUCH BETTER NOW. PATIENT REMAINED IN ST, HR 1-TEENS TO 120S. SBP 90S TO 1-TEENS. ABDOMEN REMAINED SEVERELY DISTENDED, FIRM, TENDER, WITH HYPOACTIVE BS. PATIENT HAD OUT APPROXIMATELY 305 MLS OF BRIGHT RED, LIQUID STOOL. PATIENT CONTINUED TO HAVE BLOOD AROUND LIPS AND MOUTH EVEN WITH NUMEROUS CLEANINGS BY PATIENT. PATIENT HAD ADEQUATE URINE OUTPUT. NO CHANGES TO SKIN NOTED. OCTREOTIDE REMAINS INFUSING AT 25 MLS/ HOUR AND NS TKO. PATIENT RECEIVED 2 UNITS PRBCS, 2 UNITS PLATELETS, 1 G CALCIUM GLUCONATE, AND 40 MEQ KCL THIS SHIFT. PATIENT REFUSED BED BATH. DR. BURNHAM, PALLIATIVE CARE AND PRIMARY NURSE HAD LONG DISCUSSION WITH PATIENT AND FAMILY THIS SHIFT ABOUT PATIENT'S POOR PROGNOSIS. PATIENT TO REMAIN FULL CODE AT THIS TIME. BED LOW, CALL LIGHT IN REACH. REPORT GIVEN TO ASSUMING ALL SOURCE INTELLIGENCE ANALYST NURSE.
[2020-10-18 03:38] LABS: Hematocrit 21.2 % (33.0-51.0); Hemoglobin 7.2 g/dL (11.5-16.0); Mean Corpuscular HGB 29.4 pg (26.0-34.0); Mean Corpuscular Volume 87 fL (80-100); Mean Platelet Volume 10.4 fL (9.1-12.4); Platelet Count 114 K/mm3 (150-400); RDW Coefficient Variation 19.1 % (11.7-14.2); RDW Standard Deviation 53.5 fL (35.1-46.3); Red Blood Cell Count 2.45 M/mm3 (3.80-5.20); White Blood Cell Count 26.61 K/mm3 (4.00-11.30)
[2020-10-18 04:09] LABS: BAND PERCENT MAN 11 % (0-8); BASOPHILS ABSOLUTE MAN 0.26 K/mm3 (0.00-0.23); BASOPHILS PERCENT MAN 1 % (0-2); EOSINOPHILS ABSOLUTE MAN 0.26 K/mm3 (0.00-0.68); EOSINOPHILS PERCENT MAN 1 % (0-6); LYMPHOCYTES ABSOLUTE MAN 1.59 K/mm3 (0.84-5.20); LYMPHOCYTES PERCENT MAN 6 % (21-46); MONOCYTES ABSOLUTE MAN 0.79 K/mm3 (0.16-1.47); MONOCYTES PERCENT MAN 3 % (4-13); NEUTROPHILS ABSOLUTE MAN 23.68 K/mm3 (1.96-9.15); SEG NEUTROPHILS PERCENT MAN 78 % (41-73); TOTAL CELLS COUNTED 100
[2020-10-18 04:16] LABS: D-Dimer, Quantitative 5.13 mg/L FEU (0.00-0.52); International Normalized Ratio 2.35; Prothrombin Time Results 24.2 Sec (9.7-11.5)
[2020-10-18 04:21] LABS: Ferritin, Serum 61 ng/mL (8-252); Iron Serum 32 ug/dL (50-170); Lactate Dehydrogenase (Ld),Bld 185 U/L (100-240); Percent Saturation 37.2 % (15.0-50.0); Total Iron Binding Capacity 86 ug/dL (250-450)
[2020-10-18 04:27] LABS: Alanine Aminotransfer (ALT/SGP 9 U/L (12-78); Albumin, Blood 3.1 g/dL (3.4-5.0); Albumin/Globulin Ratio 2.2 (0.8-1.8); Alk Phos 66 U/L (50-136); Anion Gap 11 mmol/L (6-16); Aspartate Aminotrans (AST/SGOT 37 U/L (12-37); Bilirubin, Total 16.2 mg/dL (0.1-1.0); Blood Urea Nitrogen 6 mg/dL (8-24); Bun/Creatinine Ratio 5.9 (12.0-20.0); CO2, Blood 22 mmol/L (21-32); Calcium, Blood 5.6 mg/dL (8.5-10.1); Chloride, Blood 107 mmol/L (98-108); Creatinine, Blood 1.01 mg/dL (0.40-1.00); Globulin, Blood 1.4 g/dL (2.2-4.0); Glomerular Filtration Rate >60 (60-); Glucose, Blood 105 mg/dL (70-99); Magnesium, Blood 0.7 mg/dL (1.6-2.4); Phosphorus, Blood 2.1 mg/dL (2.5-4.9); Potassium, Blood 2.6 mmol/L (3.5-5.5); Sodium, Blood 140 mmol/L (136-145); Total Protein, Blood 4.5 g/dL (6.4-8.2)
--- NOTE | 2020-10-18 05:43 | NUR ---
SHIFT SUMMARY PATIENT FOUND TO BE RESTING COMFORTABLY IN BED AT START OF SHIFT. A&OX4, GREENFIELD, AND FOLLOWS COMANDS. VERY WITHDRAWN AND QUIET UPON ASSESSMENT. SLOW TO RESPOND. GENERALIZED WEAKNESS NOTED. ON 5L NC MOST OF SHIFT SATING LOW 90'S. SR/ST IN THE LOW 100'S ON THE MONITOR. BP SOFT BUT STABLE. OCTREOTIDE AND IV ABX RUNNING PER ORDER. SEVERE PAIN TO ABDOMEN WITH DECENT RELIEF WITH PRN FENTANYL Q2H. PAIN WITH MINIMAL MOVEMENT AND OFTEN REFUSING TURNS AND BOOSTS BECAUSE OF THIS.
--- NOTE | 2020-10-18 07:30 | NUR ---
ASSUMED CARE BEDSIDE REPORT FROM HUMAIRA RICHARD AT 0700. PT WAKES c VERBAL STIMULI. FOLLOWS SIMPLE COMMANDS. A&O X 3. FLAT AFFECT. LOSES FOCUS DURING ASSESSMENT. GREENFIELD, WEAK. ABLE TO ASSIST c LIFTING HIPS FOR BEDPAN. INCREASED SOB c EXERTION. LUNGS DIMINISHED IN BASES. DRY COUGH. 7L VIA HIGH FLOW. O2 SATS >93%. PT VERY JAUNDICE. SKIN DRY c SCATTERED PETIECHIA AND ECCHYMOSIS. ABD DISTENDED, TYMPANIC, TENDER. HYPOACTIVE BT. PUNCTURE SITE TO RLQ FROM PARACENTESIS. 2+ EDEMA TO EXTREMITIES. DRIED BLOOD TO MOUTH. ONE GREEN SMALL BM. PICC TO LUE, DRESSING C/D/I. POWERGLIDE TO RUE, DRESSING C/D/I. VSS. WILL CONTINUE TO MONITOR.
--- NOTE | 2020-10-18 14:31 | NUR ---
DR THOMPSON CONSULT/DR BURNHAM NOTIFIED INCREASED WOB AND O2 DESATURATION. O2 INCREASED TO 13L OVER SHIFT. PT DESATS c MINIMAL EXERTION. MID 80'S WHEN ROLLING FOR BEDPAN. INCREASED ANXIETY. ENCOURAGED SLOW RESP. LUNGS COARSE ON RUL, DIMINISHED IN BASE. CLEAR ON LEFT. PT C/O ABD PAIN/PRESSURE. DR BURNHAM CALLED. DR THOMPSON CONSULTED. PRECEDEX STARTED. CHEST XRAY REPEATED. AIRVO PLACED, 50L 50% FIO2. O2 SATS 94%. PT STATES SHE IS LESS ANXIOUS. PENDING POSSIBLE TRANSFER TO [facility] FOR TIPS. WILL CONTINUE TO MONITOR.
--- NOTE | 2020-10-18 16:40 | NUR ---
Review of pt trending and needs with nursing. Review of patient in rounds today. Intesivist conculted. pt pps score is 20%.
--- NOTE | 2020-10-18 17:40 | NUR ---
SHIFT SUMMARY PT PLACED ON AIRVO THIS SHIFT. TOLERATING WELL AT THIS TIME. 40L/60%. LUNGS c CRACKLES ON RUL, DIMINISHED IN LOWER. PRODUCTIVE COUGH, BLOOD STREAKED SPUTUM. O2 SATS MID 90'S. LABORED, TACHYPNEIC RESP. PT DYSPNIC c MINIMAL EXERTION. PRECEDEX GTT STARTED FOR SEDATION, INFUSING AT 0.2 MCG/KG/HR. PT STARTLES AWAKE c STIMULI, APPEARS SOMULENT WHEN UNDISTURBED. PT VERY ANXIOUS PRIOR TO PRECEDEX GTT. PT ABLE TO FOLLOW SIMPLE DIRECTIONS. APPEARS TO LOOSE FOCUS DURING CONVERSATION. JAUNDICE CONTINUES. BP STABLE. ST, RATE 120'S. NO RECTAL BLEEDING OR BLOOD STOOLS THIS SHIFT. WILL CONTINUE TO MONITOR UNTIL REPORT TO ONCOMING NURSE.
--- NOTE | 2020-10-18 19:26 | NUR ---
TRANSFER PT TO BE TRANSFERRED TO [facility]. REPORT TO LEONCIO IN ICU. REACH AT BEDSIDE FOR TRANSFER. REPORT TO CONOR. RT IN ROOM TO SWITCH PT TO BIPAP FOR TRANSFER. ALL BELONGINGS c PT. FAMILY NOTIFIED BY DR BURNHAM.
== END 2020-10-18 20:07 | disposition short-term general hospital (02) | DRG 344 ==
LOC: ER 17:11 → ICUW 20:34 → PCU 20:34 → ICUE 20:34 → MEDS 20:34 → ICUE 21:10 → MEDS 10-05 19:32 → PCU 10-07 16:27 → ICUE 10-12 10:52 → PCU 10-14 18:50 → ICUE 10-17 05:50
PROVIDERS: Emergency Medicine; Internal Medicine; Internal Medicine Gastroenterology; Internal Medicine Hematology & Oncology; Surgery; ADMIT Family Medicine
PROC: 30233N1 Transfusion of Nonautologous Red Blood Cells into Peripheral Vein, Percutaneous Approach (ICD-10-PCS; 2020-10-03)
PROC: 0W9G3ZZ Drainage of Peritoneal Cavity, Percutaneous Approach (ICD-10-PCS; 2020-10-04)
PROC: 0DJ08ZZ Inspection of Upper Intestinal Tract, Via Natural or Artificial Opening Endoscopic (ICD-10-PCS; 2020-10-04)
PROC: 0DJD8ZZ Inspection of Lower Intestinal Tract, Via Natural or Artificial Opening Endoscopic (ICD-10-PCS; 2020-10-05)
PROC: 0D9P8ZZ Drainage of Rectum, Via Natural or Artificial Opening Endoscopic (ICD-10-PCS; principal; 2020-10-10 15:45)
PROC: 0W9G3ZZ Drainage of Peritoneal Cavity, Percutaneous Approach (ICD-10-PCS; 2020-10-12)
PROC: 0W9G3ZZ Drainage of Peritoneal Cavity, Percutaneous Approach (ICD-10-PCS; 2020-10-17)
PROC: 02HV33Z Insertion of Infusion Device into Superior Vena Cava, Percutaneous Approach (ICD-10-PCS; 2020-10-17)
PROC: 30233L1 Transfusion of Nonautologous Fresh Plasma into Peripheral Vein, Percutaneous Approach (ICD-10-PCS; 2020-10-18)
PROC: 30233K1 Transfusion of Nonautologous Frozen Plasma into Peripheral Vein, Percutaneous Approach (ICD-10-PCS; 2020-10-18)
DX: K64.8 Other hemorrhoids (principal); K76.7 Hepatorenal syndrome; D65 Disseminated intravascular coagulation [defibrination syndrome]; J69.0 Pneumonitis due to inhalation of food and vomit; D62 Acute posthemorrhagic anemia; E87.2 Acidosis; I85.10 Secondary esophageal varices without bleeding; K76.6 Portal hypertension; N17.9 Acute kidney failure, unspecified; R65.10 Systemic inflammatory response syndrome (SIRS) of non-infectious origin without acute organ dysfunction; Z20.822 Contact with and (suspected) exposure to COVID-19; K57.30 Diverticulosis of large intestine without perforation or abscess without bleeding; K44.9 Diaphragmatic hernia without obstruction or gangrene; E87.6 Hypokalemia; K72.90 Hepatic failure, unspecified without coma; D72.823 Leukemoid reaction; R82.71 Bacteriuria; I95.1 Orthostatic hypotension; R09.02 Hypoxemia; K31.89 Other diseases of stomach and duodenum; E83.42 Hypomagnesemia; T50.1X5A Adverse effect of loop [high-ceiling] diuretics, initial encounter; Y92.239 Unspecified place in hospital as the place of occurrence of the external cause; K70.31 Alcoholic cirrhosis of liver with ascites; Z88.2 Allergy status to sulfonamides; Z88.0 Allergy status to penicillin; Z79.899 Other long term (current) drug therapy; Z98.890 Other specified postprocedural states
CPT/HCPCS: 0097U; 36415; 36430; 36569; 49083; 71045; 76705; 78278; 80048; 80053; 82042; 82105; 82140; 82247; 82248; 82330; 82607; 82728; 82746; 82803; 82945; 83010; 83540; 83550; 83605; 83615; 83735; 84100; 84132; 84145; 84157; 85014; 85018; 85025; 85027; 85060; 85379; 85384; 85610; 85730; 86140; 86850; 86900; 86901; 86920; 86923; 87070; 87075; 87205; 87493; 88184; 88185; 89051; 93005; 93010; 94762; 99285-25; A9270; A9560; C1751; C9113; J0171; J0610; J0696; J1430; J1450; J2060; J2270; J2354; J2405; J2543; J2550; J2704; J3010; J3370; J3411; J3430; J3475; J3480; J7042; J7050; J7060; J7120; P9016; P9041; P9046; P9059